=== PATIENT | male | born 1960 | race Caucasian/White ===

== ENCOUNTER 2020-01-08 15:09 | Observation (INO) | payer MEDICARE, MEDICAID, SELFPAY ==
[2020-01-08] VITALS (9 sets, daily range): BP systolic 113–172; BP diastolic 68–102; PULSE 68–85; RESP 18–24; TEMP 36.4–36.9; O2SAT 99–100; BMI 28.8
--- NOTE | ~2020-01-08 | XR_ITS ---
EXAMINATION: XR chest 1V portable DATE: 01/08/2020 16:42 INDICATION: Shortness of breath, dizziness and chills TECHNIQUE: frontal view of the chest was obtained. COMPARISON: Chest radiograph dated 07/11/2018 FINDINGS: The lungs remain clear with no focal airspace opacities, pulmonary edema, pleural effusion or pneumot horax. The cardiomediastinal silhouette is normal. Visualized bones and soft tissues are unremarkable . IMPRESSION: 1. No acute cardiopulmonary disease. Reviewed, dictated and finalized at location A.
--- NOTE | ~2020-01-08 | CT_ITS ---
EXAMINATION: CT brain wo con DATE: 01/08/2020 18:24 INDICATION: Dizziness. TECHNIQUE: Computed tomography (CT) of the head was performed without intravenous contrast. Sagittal and coronal reconstructions were performed. The mA was adjusted according to patient size. Iterative reconstruction technique was employed. The dose-length product was 681.00 mGy-cm. COMPARISON: None FINDINGS: No acute intracranial hemorrhage, acute infarction or abnormal extra axial fluid collection. Ventricl es are normal and symmetric. No mass/mass effect. Mild mucosal thickening the bilateral ethmoid sinus es and right frontoethmoidal recess. The orbits and mastoid air cells are normal. Atherosclerotic juan cifications at the bilateral carotid siphons. IMPRESSION: 1. No acute intracranial process. Reviewed, dictated and finalized at location A.
--- NOTE | ~2020-01-08 | CT_ITS ---
EXAMINATION: CTA chest PE protocol DATE: 01/08/2020 18:24 INDICATION: Shortness of breath. Elevated d-dimer. TECHNIQUE: Computed tomography (CT) pulmonary angiogram of the chest was performed with 100 mL Omnipa que-350 intravenous contrast. Additional 3D reconstructions utilizing coronal maximum intensity proje ction (MIP) were performed. Automated exposure control and iterative reconstruction technique were em ployed. The dose-length product was 413.28 mGy-cm. COMPARISON: None FINDINGS: Excellent contrast opacification of the pulmonary arteries. There is mild streak artifact from dense contrast in the superior vena cava and right atrium. Minimal scattered respiratory motion artifact wh ich does not significantly limit evaluation. No pulmonary embolism. Mild emphysema. Gradient of hazy groundglass opacities in the dependent lower lobes consistent with mild passive atelectasis. No pulmo nary edema, pneumonia, pleural effusion or pneumothorax. Heart size is normal. No pericardial effusio n. Thoracic aorta is normal in caliber with no dissection. There is small amount of peripheral noncal cified plaque along the proximal descending thoracic aorta. No pathologically enlarged thoracic lymph adenopathy. Visualized upper abdomen is unremarkable. Mild thoracic spondylosis. IMPRESSION: 1. No pulmonary embolism or other acute cardiopulmonary disease. 2. Mild emphysema. Reviewed, dictated and finalized at location A.
--- NOTE | 2020-01-08 15:50 | ECG_ITS ---
Measurements Intervals [place] Rate: 73 P: 30 CO: 133 QRS: 81 QRSD: 103 T: 66 QT: 411 QTc: 454 Interpretive Statements SINUS RHYTHM EARLY PRECORDIAL R/S TRANSITION BORDERLINE ECG Electronically Signed On 01-08-2020 16:00:52 CDT by Madi Cruz D.O.
[2020-01-08 15:52] LABS: Basophils Absolute Auto 0.1 K/mm3 (0.0-0.1); Eosinophils Absolute Auto 0.2 K/mm3 (0-0.3); Eosinophils Percent Auto 1.6 % (0-4.4); Hematocrit 45.4 % (42.0-52.0); Hemoglobin 15.9 g/dL (14.0-18.0); Immature Granulocyte Absolute 0.03 K/mm3 (0.00-0.031); Immature Granulocyte Percent A 0.3 % (0-0.5); Lymphocytes Absolute Auto 3.64 K/mm3 (0.9-3.2); Lymphocytes Percent Auto 34.8 % (18.3-44.2); Mean Corpuscular Hemoglobin 30.6 pg (26-34); Mean Corpuscular Volume 87.3 fl (80-100); Mean Platelet Volume 9.6 fl (7.4-10.4); Monocytes Absolute Auto 0.5 K/mm3 (0.1-0.6); Neutrophils Percent Auto 57.3 % (45.5-73.1); Platelet Count Result 469 k/mm3 (150-375); Red Cell Distribution Width 12.6 % (11.5-14.5); White Blood Count 10.5 K/mm3 (4.5-10.0)
--- NOTE | 2020-01-08 15:56 | ED.DIZZY ---
HPI - Dizziness General Chief Complaint: Dizziness Stated Complaint: dizzy, nausea, sweating, weak Time Seen by Provider: 01/08/20 15:26 Source: patient Mode of arrival: ambulatory Limitations: no limitations History of Present Illness HPI Narrative: This patient is a 59 year old male with history of anxiety who presents for evaluation of multiple complaints. Patient states he woke up this morning with dizziness, nausea and dry heaves . He describes his dizziness as spinning. He denies associated headache, focal weakness, visual changes, abdominal pain or chest pain. He states he just feels ill. He also reports cough and sob. He reports he feels like he cant stop moving. He denies sick contacts. MD elicited complaint: dizziness Related Data Allergies Allergy/AdvReac Type Severity Reaction Status Date / Time latex Allergy Unknown Verified 08/01/16 15:28 oxycodone Allergy Unknown NAUSEA AND Verified 11/27/18 15:44 VOMITING Review of Systems Review of Systems: All systems reviewed & are unremarkable except as noted in HPI and below Constitutional: Constitutional: Reports chills, Reports fatigue and Denies fever(s) Eyes: Eyes: Reports no additional eye complaints ENT: Denies dysphagia, Reports vertigo, Reports dizziness, Denies epistaxis, Denies nasal congestion and Denies sore throat Cardiovascular: Cardiovascular: Denies chest pain Respiratory: Respiratory: Reports cough, Reports dyspnea and Denies wheezing Gastrointestinal: Gastrointestinal: Denies abdominal pain, Denies constipation, Denies diarrhea and Reports nausea Neurologic: Denies vertigo, Denies headache(s), Denies focal weakness and Denies numbness PMFSH Past Medical History Medical History (Updated 01/08/20 @ 21:10 by Janett Bhagat MD) Anxiety Surgical History Surgical History (Updated 01/08/20 @ 16:01 by Janett Bhagat MD) H/O: knee surgery Family History Family History (Updated 10/02/16 @ 17:53 by DOCTOR UNKNOWN) Mother Family history of cardiovascular disease Father Family history of malignant neoplasm Social History Social History Smoking status: Former smoker Smoking end date: 05/21/09 Alcohol intake: current Gender identity (if verbalized by the patient): Male Exam Const: General: alert, diaphoretic and ill appearing Orientation/consciousness: patient oriented x3 HENMT: Mouth: Yes moist mucous membranes Eyes: Pupils: Equal, round and reactive pupils present EOM: EOMs intact bilaterally Resp: Effort & Inspection: no retractions, tachypneic (hyperventilating) and no use of accessory muscles Auscultation: clear to auscultation bilaterally Cardio: Rate: regular rate Rhythm: regular rhythm Heart sounds: no murmurs GI: Auscultation: normal bowel sounds Neuro: General: patient oriented x3 and moves all extremities Extrem: General: no pedal edema Psych: Affect: Anxious affect present Course Consultations Consultation #1: I Discussed with Dr. daley case and she accepts for observation for IVF hydration Date: 01/08/20 Time: 21:03 Vital Signs Vital signs: Vital Signs Temperature 97.6 F 01/08/20 15:10 Pulse Rate 85 01/08/20 15:10 Respiratory Rate 22 H 01/08/20 15:10 Blood Pressure 113/75 01/08/20 15:10 Pulse Oximetry 100 01/08/20 15:10 Temperature 97.6 F 01/08/20 15:10 Pulse Rate 78 01/08/20 21:02 Respiratory Rate 18 01/08/20 21:02 Blood Pressure 158/70 H 01/08/20 21:02 Pulse Oximetry 99 01/08/20 19:26 MDM - Dizziness Lab Data Attestation: I reviewed the patient's lab results. Result diagrams: 01/08/20 15:38 01/08/20 15:39 Labs: Lab Results 01/08/20 01/08/20 01/08/20 Range/Units 15:37 15:38 15:39 WBC 10.5 H (4.5-10.0) K/mm3 RBC 5.20 (4.6-6.20) M/mm3 Hgb 15.9 (14.0-18.0) g/dL Hct 45.4 (42.0-52.0) % MCV 87.3 (80-100) fl MCH 30.6 (26-34) pg MCHC 35.0 (32-36) g/dl RDW
[2020-01-08] MEDS: ONDANSETRON INJ 4 MG/2 ML VIAL IV PUSH (15:59)
[2020-01-08] MEDS: MECLIZINE HCL 25 MG TABLET PO ×2 (16:00→19:50)
[2020-01-08 16:06] LABS: Alanine Aminotransferase 29 U/L (4-50); Albumin Level 4.9 g/dL (3.5-5.1); Alkaline Phosphatase 113 U/L (38-126); Anion Gap 13 mmol/L (8-16); Aspartate Amino Transferase 32 U/L (17-59); Bilirubin,Total 0.5 mg/dL (0.2-1.3); Blood Urea Nitrogen 13 mg/dL (9-20); Calcium 10.6 mg/dL (8.4-10.2); Carbon Dioxide 18 mmol/L (22-30); Chloride 111 mmol/L (98-107); Estimated CRCL calculation 60 ml/min; Estimated Glomerular Filt Rate > 60; Glucose 176 mg/dL (75-110); Potassium 3.7 mmol/L (3.4-5.0); Sodium 142 mmol/L (137-145)
[2020-01-08 16:21] LABS: Alveolar/Arterial O2 Gradient 28.6 mmHg; Carboxyhemoglobin 1.6 % THb (0-2.0); Fractional Inspired Oxygen 21 %; HCO3 ABG 17.4 mEq/l (22.0-26.0); Methemoglobin ABG 0.5 %THb (0-1.5); Oxygen Content ABG 20.8 %vol (16.0-22.0); Oxyhemoglobin 95.8 % THb (90.0-100.0); PO2 ABG 95.1 mmHg (80.0-100.0); PO2 FiO2 Ratio Arterial Blood 4.53 %; Reduced Hemoglobin 2.1 %THb (0-5.0); Total Hemoglobin 15.4 g/dL (12.0-18.0)
[2020-01-08 16:22] LABS: pH ABG 7.522 (7.350-7.450)
[2020-01-08 16:23] LABS: Device ROOM AIR; Modified Allen's Test Pass; PCO2 ABG 21.7 mmHg (35.0-45.0); Site Drawn LEFT RADIAL
[2020-01-08 16:28] LABS: INR 0.9; Prothrombin Time 11.8 Seconds (11.1-14.7)
[2020-01-08 16:29] LABS: Partial Thromboplastin Time 22.7 SECONDS (22.3-36.8)
[2020-01-08 16:31] LABS: D Dimer 0.75 ug/mL (<0.48)
[2020-01-08 17:10] LABS: Lactic Acid Reflex 3.5 mmol/L (0.7-2.1)
[2020-01-08 17:12] LABS: Ethanol < 10 mg/dL (<10)
[2020-01-08 17:14] LABS: CRP < 0.5 mg/dL (<1.0); Lactate Dehydrogenase 471 U/L (313-618)
[2020-01-08 17:20] LABS: NT Pro B Type Natriuretic Pept 39 PG/ML (5-100)
--- NOTE | 2020-01-08 17:20 | PC.NURSE ---
patient refuses to provide urine for ua until i get some water refuses to be straight cathed. unpleasant and uncooperative with nursing interventions
[2020-01-08] MEDS: LACTATED RINGERS 1,000 ML 999 ML IV CONT (17:32)
[2020-01-08] MEDS: PROMETHAZINE HCL 25 MG/ML AMPUL 12.5 MG IV PUSH (17:45)
[2020-01-08 19:36] LABS: Add Urine Microscopic? YES; Appearance Urine Clear (Clear); Bilirubin Urine Negative (Negative); Blood Urine Negative (Negative); Color Urine Yellow (Yellow); Glucose Urine UA 1+ mg/dL (Negative); Ketones Urine Trace mg/dL (Negative); Leukocyte Esterase Ur Negative LEU/UL (Negative); Mucus Urine Rare /lpf; Nitrate Urine Negative (Negative); Protein Urine 1+ mg/dL (Negative); RBC Urine 0-2 /hpf (0-2); Urobilinogen Urine Negative mg/dL (<2.0); WBC Urine 0-3 /hpf
[2020-01-08 19:39] LABS: Specific Grav Ur 1.048 (1.001-1.035)
[2020-01-08 19:46] LABS: Amphetamine Screen Urine Negative (Negative); Barbiturate Screen Urine Negative (Negative); Benzodiazepines Screen Urine Negative (Negative); Cannabinoid Screen Urine Positive (Negative); Methadone Screen Urine Negative (Negative); Opiate Screen Urine Negative (Negative); Phencyclidine Screen Urine Negative (Negative)
[2020-01-08] MEDS: SODIUM CHLORIDE 0.9% IV 1,000 ML 999 ML IV CONT (19:50)
[2020-01-08 19:57] LABS: Reflex Lactic Acid Yes or No Add Lactic
[2020-01-08 20:10] LABS: Cocaine Screen Urine Negative (Negative)
[2020-01-08 20:32] LABS: Lactic Acid 2.6 mmol/L (0.7-2.1)
[2020-01-09] VITALS (7 sets, daily range): BP systolic 142–164; BP diastolic 79–92; PULSE 67–102; RESP 18; TEMP 37.1–37.2; O2SAT 97–99
[2020-01-09 00:58] LABS: Lactic Acid Reflex 1.3 mmol/L (0.7-2.1)
--- NOTE | 2020-01-09 01:23 | ADMGEN ---
This patient, Gabe Moses, was admitted to 3 Med Surg Room 329-01. Patient/family oriented to hospital policies and general routines including ID bracelet, bed and alarms, visiting hours, pain management, procedures, bathroom and other care routines, personal items, smoking policy, room service/diet, and visiting hours. Valuables list has been completed. Information on how to activate the Rapid Response Team has been discussed. Patient/Family are encouraged to report perceived risks to care and to ask questions if they do not understand what they are told or what they should do.
[2020-01-09 02:52] LABS: SARS-CoV-2 RNA PCR Negative
[2020-01-09 06:09] LABS: Basophils Percent Auto 0.2 % (0.2-1.2); Hemoglobin 13.2 g/dL (14.0-18.0); Immature Granulocyte Absolute 0.08 K/mm3 (0.00-0.031); Immature Granulocyte Percent A 0.5 % (0-0.5); Lymphocytes Absolute Auto 1.41 K/mm3 (0.9-3.2); Lymphocytes Percent Auto 8.4 % (18.3-44.2); Mean Corpuscular HGB Conc 34.7 g/dl (32-36); Mean Corpuscular Hemoglobin 30.6 pg (26-34); Mean Corpuscular Volume 88.2 fl (80-100); Mean Platelet Volume 9.5 fl (7.4-10.4); Monocytes Absolute Auto 0.9 K/mm3 (0.1-0.6); Neutrophils Absolute Auto 14.5 K/mm3 (1.3-6.7); Neutrophils Percent Auto 85.9 % (45.5-73.1); Platelet Count Result 316 k/mm3 (150-375); Red Blood Count 4.31 M/mm3 (4.6-6.20); Red Cell Distribution Width 12.7 % (11.5-14.5); White Blood Count 16.9 K/mm3 (4.5-10.0)
[2020-01-09 06:28] LABS: Alanine Aminotransferase 19 U/L (4-50); Albumin Level 4.1 g/dL (3.5-5.1); Alkaline Phosphatase 76 U/L (38-126); Anion Gap 9 mmol/L (8-16); Aspartate Amino Transferase 23 U/L (17-59); Bilirubin,Total 0.3 mg/dL (0.2-1.3); Blood Urea Nitrogen 10 mg/dL (9-20); Carbon Dioxide 22 mmol/L (22-30); Chloride 107 mmol/L (98-107); Estimated CRCL calculation 62 ml/min; Estimated Glomerular Filt Rate > 60; Glucose 125 mg/dL (75-110); Potassium 3.6 mmol/L (3.4-5.0); Sodium 138 mmol/L (137-145)
[2020-01-09 11:23] LABS: Hemoglobin A1C 5.7 % (<5.7)
--- NOTE | 2020-01-09 12:09 | PM.SD ---
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 Pt also had compliants of headache, dizziness, focal weakness and blurred vision. Pt had eaten mcdonalds and soda yesterday but does not remember drinking water. Pt has also been eating less and has been down because he lost his dog of 9 years. Pt was checked for covid but it was negative. Pt had CT head which was NL and CT chest which showed no PE. Pt had a UDS which was positive for cannabinoids. Pt was admitted and hydrated with fluids. PMFSH Past Medical History Medical History Anxiety Surgical History Surgical History H/O: knee surgery Family History Family History Mother Family history of cardiovascular disease Father Family history of malignant neoplasm Social History Social History Smoking packs per day: 2 Smoking cigarettes per day: 40.0 Years smoked: 40 Smoking pack-years: 80.00 Smoking status: Former smoker Tobacco type: cigarettes Smoking end date: 05/21/09 Alcohol intake: former Substance use type: marijuana Other substance usage details: Daily use of marijuana Gender identity (if verbalized by the patient): Male Spiritual care concerns: No Same Day Admit/Disch: Med Pre-admit Medications Home Medications Medication Instructions Recorded Confirmed Type omeprazole 40 mg PO DAILY 01/08/20 01/08/20 History venlafaxine 150 mg PO DAILY 01/08/20 01/08/20 History Exam Const: General: well developed Nutritional Appearance: well nourished HENMT: Head: normocephalic and other (tongue is moist ) Eyes: General: appearance normal, both eyes and all related structures Pupils: Equal, round and reactive pupils present Neck: Neck: supple Chest: Chest palpation & inspection: normal inspection of the chest Resp: Effort & Inspection: normal respiratory effort Auscultation: clear to auscultation bilaterally Cardio: Jugular venous distension: no JVD Rhythm: regular rhythm Heart sounds: S1 normal heart sound present and S2 normal heart sound present GI: Inspection: normal to inspection GI Palp: No abdominal tenderness, Yes Soft to palpation and No Tenderness to palpation present (GI) Auscultation: normal bowel sounds Skin: General skin exam: normal color and dry skin Neuro: Cranial nerves: Yes CN's II-XII intact bilaterally and Yes Equal, round and reactive pupils present Cognition (Neuro): normal cognition Speech: normal speech Motor exam (neuro): 5/5 motor strength present throughout Extrem: General: normal to inspection Psych: Appearance: grossly normal Mental Status: mental status grossly normal DS: Data Data Completed and Pending Labs on day of discharge: Labs from last 24 hours 01/09/20 01/09/20 01/09/20 05:55 05:55 00:27 WBC 16.9 H RBC 4.31 L Hgb 13.2 L Hct 38.0 L MCV 88.2 MCH 30.6 MCHC 34.7 RDW 12.7 Plt Count 316 MPV 9.5 Immature Gran % (Auto) 0.5 Neut % (Auto) 85.9 H Lymph % (Auto) 8.4 L [place] % (Auto) 5.0 Eos % (Auto) 0.0 Baso % (Auto) 0.2 Lymph # (Auto) 1.41 [place] # (Auto) 0.9 H Eos # (Auto) 0.0 Baso # (Auto) 0.0 Abs Immat Gran (auto) 0.08 H Absolute Neuts (auto) 14.5 H Absolute Nucleated RBC 0.0 Nucleated RBC % 0.0 PT INR APTT D-Dimer Puncture Site ABG pH ABG pCO2 ABG pO2 ABG PO2/FiO2 Ratio ABG HCO3 ABG O2 Saturation ABG O2 Content ABG Base Excess A-a Gradient Oxyhemoglobin Carboxyhemoglobin Methemoglobin Reduced Hemoglobin Total Hemoglobin
[2020-01-09] MEDS: SODIUM CHLORIDE 0.9% IV 1,000 ML 125 ML IV CONT ×2 (12:15)
--- NOTE | 2020-01-09 12:54 | PC.NURSE ---
Per Dr. Oliva, patient to have 500mL more normal saline prior to discharge. Ok to increase fluid rate to 250mL/hour and discharge patient at 1500 once fluids are finished. Patient updated on plan of care.
== END 2020-01-09 15:16 | disposition home or self-care (01) ==
LOC: ANHED 21:17 → ANH3MEDSUR 01-09 01:51
PROVIDERS: Admitting Provider Internal Medicine; Emergency Provider General Practice; PCP Emergency Medicine; Visit Provider Family Medicine
DX: E86.0 Dehydration (principal); Z20.828 Contact with and (suspected) exposure to other viral communicable diseases; R42 Dizziness and giddiness; R06.02 Shortness of breath; E87.2 Acidosis; F12.90 Cannabis use, unspecified, uncomplicated; Z79.899 Other long term (current) drug therapy; Z87.891 Personal history of nicotine dependence
CPT/HCPCS: 36415; 36600; 70450; 71045; 71275; 80053; 80307; 81001; 82375; 82805; 83036; 83050; 83605; 83615; 83880; 85025; 85380; 85610; 85730; 86140; 87635; 93005; 96361; 96374; 96375; 99291; A9270; C9803; G0378; J2060; J2405; J2550; J7030; J7120; Q9967; U0003

== ENCOUNTER 2020-04-21 10:24 | Outpatient (CLI) | payer MEDICARE, MEDICAID, SELFPAY ==
--- NOTE | ~2020-04-21 | XR_ITS ---
EXAMINATION: XR wrist LT 2V DATE: 04/21/2020 10:46 INDICATION: Left wrist pain. TECHNIQUE: 2 views of left wrist were obtained. COMPARISON: None. FINDINGS: Bone alignment is normal. No fracture. There is mild osteoarthritis of first carpometacarpa l joint. IMPRESSION: 1. Mild osteoarthritis of first carpometacarpal joint. Reviewed, dictated and finalized at location A. LWORKING SPECIALIST
== END 2020-04-21 10:25 | disposition home or self-care (01) ==
LOC: ANHIMG 10:33
PROVIDERS: PCP Emergency Medicine; Visit Provider Emergency Medicine
DX: M19.032 Primary osteoarthritis, left wrist (principal)
CPT/HCPCS: 73100

== ENCOUNTER 2020-09-22 08:48 | Outpatient (CLI) | payer MEDICARE, MEDICAID, SELFPAY ==
--- NOTE | ~2020-09-22 | MR_ITS ---
EXAMINATION: MR wrist LT wo con DATE: 09/22/2020 09:49 INDICATION: Left wrist pain TECHNIQUE: Magnetic resonance imaging (MRI) of the left wrist was performed without intravenous contr ast. Sequences performed include axial PD-weighted FSE and PD-weighted FS FSE, coronal PD-weighted FS FSE, T1-weighted FSE and 3-D FGRE, and sagittal PD-weighted FS FSE and PD-weighted FSE. COMPARISON: Left wrist radiographs dated 04/21/2020 FINDINGS: Evaluation mildly limited by small amount of motion artifact or blurring on all but the 3-D FGRE sequ ences. Intrinsic ligaments: The scapholunate and lunotriquetral ligaments are normal. Triangular fibrocartilage complex (TFCC): Mild increased signal of less than fluid intensity consistent with partial tear at the central fiber cartilaginous disc of the triangular fibrocartilage complex as well as the dorsal radioulnar ligament . The foveal and ulnar styloid attachments remain intact. The ulnar collateral ligament, ulnotriquetr al ligament and meniscal homologue are normal. The extensor carpi ulnaris tendon sheath is normal. Extensor wrist: Extensor tendons of the wrist are normal. No tenosynovitis. Flexor wrist: The flexor tendons of the wrist are normal. No abnormality in the carpal tunnel with normal median n erve. Guyon's canal: Guyon's canal including the ulnar nerve and artery are normal. Bones/other: 2 mm ulnar positive variance. There is prominent cystic change in the lunate with surrounding marrow edema. This is centered along the ulnar side of the proximal articular cortex juxtaposed to the radia l margin of the distal articular surface of the ulna and would be consistent with ulnocarpal impactio n. Moderate osteoarthritis at the first carpometacarpal joint with nonuniform cartilage loss, promine nt hypertrophic changes and subarticular cystic change at the trapezium. No fracture, or pathologic m arrow replacing process. Additional mild polyarticular osteoarthritis at the wrist, midcarpal, trisca phe and remaining carpal metacarpal joints. IMPRESSION: 1. 2 mm ulnar positive variance with prominent cystic change at the lunate consistent with ulnocarpal impaction. 2. 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 3. Partial tears of the central fibrocartilaginous disc and dorsal radioulnar ligament components of the triangular fibrocartilage complex. Reviewed, dictated and finalized at location A. IMPRESSION: 1. 2 mm ulnar positive variance with prominent cystic change at the lunate cons istent with ulnocarpal impaction. 2. 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 3. Partial tears of the central fibrocartilaginous disc and dorsal radioulnar l igament components of the triangular fibrocartilage complex.
== END 2020-09-22 08:49 | disposition home or self-care (01) ==
PROVIDERS: PCP Emergency Medicine; Visit Provider Orthopaedic Surgery
DX: M19.032 Primary osteoarthritis, left wrist (principal)
CPT/HCPCS: 73221

== ENCOUNTER 2020-10-11 17:58 | Emergency (ER) | payer MEDICARE, MEDICAID, SELFPAY ==
--- NOTE | ~2020-10-11 | CT_ITS ---
EXAMINATION: CT abdomen pelvis w con DATE: 10/11/2020 20:14 INDICATION: Low abdominal pain. Vomiting. TECHNIQUE: Computed tomography (CT) of the abdomen and pelvis was performed with 100 cc Omnipaque 350 intravenous contrast. The dose-length product was 353.49 mGy-cm. Automated exposure control and iter ative reconstruction technique were employed. COMPARISON: CT dated 12/27/2016 FINDINGS: Bibasilar dependent atelectasis. Heart size is normal. Small hiatal hernia. No significant pleural or pericardial effusion. Colonic diverticulosis without evidence for diverticulitis. Fat-cont aining umbilical hernia. Nonobstructive bowel gas pattern. Chronic diverticulosis without evidence fo r diverticulitis. Fatty infiltration of the liver. The spleen, pancreas, adrenal glands and kidneys are unremarkable. G allbladder is present. Small liver cyst right hepatic lobe. No free air or free fluid. No acute osseo us abnormality. Moderate lumbar spondylosis with dextroscoliosis. IMPRESSION: 1. No acute abdominal abnormality. Reviewed, dictated and finalized at location A.
[2020-10-11 18:01] VITALS: BP 159/90; PULSE 74; RESP 20; TEMP 36.8; O2SAT 100
[2020-10-11 18:11] LABS: Basophils Percent Auto 0.3 % (0.2-1.2); Hematocrit 43.6 % (42.0-52.0); Hemoglobin 14.7 g/dL (14.0-18.0); Immature Granulocyte Absolute 0.06 K/mm3 (0.00-0.031); Immature Granulocyte Percent A 0.5 % (0-0.5); Lymphocytes Absolute Auto 0.91 K/mm3 (0.9-3.2); Lymphocytes Percent Auto 7.1 % (18.3-44.2); Mean Corpuscular HGB Conc 33.7 g/dl (32-36); Mean Corpuscular Hemoglobin 30.8 pg (26-34); Mean Corpuscular Volume 91.2 fl (80-100); Mean Platelet Volume 9.1 fl (7.4-10.4); Monocytes Absolute Auto 0.2 K/mm3 (0.1-0.6); Monocytes Percent Auto 1.9 % (2.6-8.5); Neutrophils Absolute Auto 11.5 K/mm3 (1.3-6.7); Neutrophils Percent Auto 90.2 % (45.5-73.1); Platelet Count Result 345 k/mm3 (150-375); Red Blood Count 4.78 M/mm3 (4.6-6.20); Red Cell Distribution Width 12.7 % (11.5-14.5); White Blood Count 12.8 K/mm3 (4.5-10.0)
[2020-10-11 18:30] LABS: Alanine Aminotransferase 34 U/L (4-50); Albumin Level 4.9 g/dL (3.5-5.1); Alkaline Phosphatase 68 U/L (38-126); Anion Gap 10 mmol/L (8-16); Aspartate Amino Transferase 42 U/L (17-59); Bilirubin,Total 0.5 mg/dL (0.2-1.3); Blood Urea Nitrogen 16 mg/dL (9-20); Calcium 10.2 mg/dL (8.4-10.2); Carbon Dioxide 25 mmol/L (22-30); Chloride 106 mmol/L (98-107); Estimated CRCL calculation 66 ml/min; Estimated Glomerular Filt Rate > 60; Glucose 176 mg/dL (75-110); Lipase 106 U/L (23-300); Potassium 3.9 mmol/L (3.4-5.0); Sodium 141 mmol/L (137-145)
[2020-10-11 19:40] LABS: Add Urine Microscopic? YES; Appearance Urine Clear (Clear); Bilirubin Urine Negative (Negative); Blood Urine Negative (Negative); Color Urine Yellow (Yellow); Glucose Urine UA 1+ mg/dL (Negative); Ketones Urine Trace mg/dL (Negative); Leukocyte Esterase Ur Negative LEU/UL (Negative); Mucus Urine Rare /lpf; Nitrate Urine Negative (Negative); Protein Urine 2+ mg/dL (Negative); Squamous Epithelial Cell Urine Rare /hpf (Few); Urobilinogen Urine Negative mg/dL (<2.0); WBC Urine 0-3 /hpf
--- NOTE | 2020-10-11 19:41 | ED.NAVMDI ---
HPI - Nausea/Vomiting/Diarrhea General Chief complaint: Nausea/Vomiting/Diarrhea Stated complaint: chills, N/V Time Seen by Provider: 10/11/20 19:26 Source: patient Mode of arrival: ambulatory Limitations: no limitations History of Present Illness HPI Narrative: This is a 59 year old male with history of GERD who presents for evaluation of nausea, vomiting and diarrhea. He states he woke up this morning with abdominal pain discomfort with nausea, vomiting and diarrhea. He reports multiple episodes of nonbloody diarrhea this morning. He feels that his diarrhea has resolved. He continues to have nausea and vomiting. He states he has similar episodes at least once a year. When he is asked if he has abdominal pain, he states he just feels tense all over. He is unable to get comfortable. He denies fever or chills. He is concerned that he is dehydrated. Related Data Allergies Allergy/AdvReac Type Severity Reaction Status Date / Time latex Allergy Unknown Verified 08/01/16 15:28 oxycodone Allergy Unknown NAUSEA AND Verified 11/27/18 15:44 VOMITING Review of Systems Review of Systems: All systems reviewed & are unremarkable except as noted in HPI and below Constitutional: Constitutional: Denies chills and Denies fever(s) Cardiovascular: Cardiovascular: Denies chest pain Respiratory: Respiratory: Denies cough and Denies dyspnea Gastrointestinal: Gastrointestinal: Reports abdominal pain, Reports diarrhea, Reports nausea and Reports vomiting Musculoskeletal: Musculoskeletal: Reports myalgias PMFSH Past Medical History Medical History (Updated 10/11/20 @ 21:03 by Janett Bhagat MD) Anxiety Surgical History Surgical History H/O: knee surgery Family History Family History Mother Family history of cardiovascular disease Father Family history of malignant neoplasm Social History Social History Smoking packs per day: 2 Smoking cigarettes per day: 40.0 Years smoked: 40 Smoking pack-years: 80.00 Smoking status: Former smoker Tobacco type: cigarettes Smoking end date: 05/21/09 Alcohol intake: former Substance use type: marijuana Other substance usage details: Daily use of marijuana Gender identity (if verbalized by the patient): Male Spiritual care concerns: No Exam Const: General: alert Orientation/consciousness: patient oriented x3 Eyes: EOM: EOMs intact bilaterally Resp: Effort & Inspection: normal respiratory effort and no retractions Auscultation: clear to auscultation bilaterally Cardio: Rate: regular rate Rhythm: regular rhythm Heart sounds: no murmurs GI: GI Palp: Yes Soft to palpation, Yes Tenderness to palpation present (GI) (umbilical hernai), No Guarding due to palpation present (GI), No Rigid due to palpation and Yes Hernia present (umbilical hernia, no erythema but there is tenderness) Skin: General skin exam: normal color Rashes: no rashes Neuro: General: patient oriented x3, moves all extremities and CN's II-XI intact bilaterally Psych: Mental Status: mental status grossly normal Affect: normal affect Course Reevaluation(s) Reevaluation #1: PAtient states he feels better . He denies nausea or vomiting. He was able to tolerate PO. Date: 10/11/20 Time: 21:02 Vital Signs Vital signs: Vital Signs Temperature 98.3 F 10/11/20 18:01 Pulse Rate 74 10/11/20 18:01 Respiratory Rate 20 10/11/20 18:01 Blood Pressure 159/90 H 10/11/20 18:01 Pulse Oximetry 100 10/11/20 18:01 Temperature 98.3 F 10/11/20 18:01 Pulse Rate 80 10/11/20 20:49 Respiratory Rate 16 10/11/20 20:49 Blood Pressure 169/75 H 10/11/20 20:49 Pulse Oximetry 100 10/11/20 20:49 MDM - Nausea/Vomiting/Diarrhea Lab Data Attestation: I reviewed the patient's lab results. Result diagr
[2020-10-11] MEDS: ONDANSETRON INJ 4 MG/2 ML VIAL IV PUSH (19:52)
[2020-10-11] MEDS: SODIUM CHLORIDE 0.9% IV 1,000 ML 999 ML IV CONT (19:52)
[2020-10-11] MEDS: FAMOTIDINE 20 MG/2 ML VIAL IV PUSH (19:53)
[2020-10-11 20:45] VITALS: BP 169/75; PULSE 80
[2020-10-11 20:46] VITALS: BP 152/85; BP 154/82; PULSE 87; PULSE 88
[2020-10-11 20:49] VITALS: BP 169/75; PULSE 80; RESP 16; O2SAT 100
== END 2020-10-11 21:33 | disposition home or self-care (01) ==
PROVIDERS: Emergency Medicine; Emergency Provider General Practice; PCP Emergency Medicine
DX: K52.9 Noninfective gastroenteritis and colitis, unspecified (principal); E86.0 Dehydration; Z87.891 Personal history of nicotine dependence; F41.9 Anxiety disorder, unspecified; K21.9 Gastro-esophageal reflux disease without esophagitis
CPT/HCPCS: 36415; 74177; 80053; 81001; 83690; 85025; 96361; 96374; 96375; 99284; J2405; J7030; Q9967

== ENCOUNTER 2022-01-11 08:04 | Emergency (ER) | payer MEDICARE, MEDICAID, SELFPAY ==
[2022-01-11] VITALS (7 sets, daily range): BP systolic 171–198; BP diastolic 74–106; PULSE 71–87; RESP 17–20; TEMP 37.3; O2SAT 97–100
--- NOTE | ~2022-01-11 | CT_ITS ---
EXAMINATION: CT abdomen pelvis w con INDICATION: Vomiting TECHNIQUE: Computed tomographic images of the abdomen and pelvis were obtained after the administrati on of 100 cc of Omnipaque 350 intravenous contrast. The dose-length product (DLP) was 265.82 mGy-cm. Automated exposure control and iterative reconstruction technique were employed. COMPARISON: 10/11/2020 FINDINGS: Minimal dependent atelectasis is present in the lung bases. Mild emphysema is also noted. T he heart size is normal. There is a stable 3 mm nodule of the right lower lobe. Cysts of the liver me asure up to 10 mm in the right hepatic lobe. The spleen, pancreas, gallbladder, and adrenal glands ar e normal. Hypoattenuating lesions in the kidneys, measuring up to 5 mm on the left, are too small to characterize but likely represent cysts. No pathologically enlarged abdominal or pelvic lymph nodes a re identified. There is no free intraperitoneal gas or evidence of bowel obstruction. Colonic diverti culosis is present without evidence of diverticulitis. There is a small umbilical hernia containing f at. There is calcified atherosclerosis of the aorta and many of the other arteries. The appendix is n ormal. IMPRESSION: 1. No CT correlate for the patient's symptoms. Reviewed, dictated and finalized at location B.
[2022-01-11 08:37] LABS: Basophils Absolute Auto 0.1 K/mm3 (0.0-0.1); Basophils Percent Auto 0.7 % (0.2-1.2); Eosinophils Absolute Auto 0.2 K/mm3 (0-0.3); Eosinophils Percent Auto 1.7 % (0-4.4); Hematocrit 42.2 % (42.0-52.0); Hemoglobin 14.5 g/dL (14.0-18.0); Immature Granulocyte Absolute 0.03 K/mm3 (0.00-0.031); Immature Granulocyte Percent A 0.3 % (0-0.5); Lymphocytes Absolute Auto 3.43 K/mm3 (0.9-3.2); Lymphocytes Percent Auto 30.3 % (18.3-44.2); Mean Corpuscular HGB Conc 34.4 g/dl (32-36); Mean Corpuscular Hemoglobin 31.4 pg (26-34); Mean Corpuscular Volume 91.3 fl (80-100); Mean Platelet Volume 9.1 fl (7.4-10.4); Monocytes Absolute Auto 0.9 K/mm3 (0.1-0.6); Monocytes Percent Auto 7.9 % (2.6-8.5); Neutrophils Absolute Auto 6.7 K/mm3 (1.3-6.7); Neutrophils Percent Auto 59.1 % (45.5-73.1); Platelet Count Result 334 k/mm3 (150-375); Red Blood Count 4.62 M/mm3 (4.6-6.20); Red Cell Distribution Width 13.1 % (11.5-14.5); White Blood Count 11.3 K/mm3 (4.5-10.0)
--- NOTE | 2022-01-11 08:49 | ED.NAVMDI ---
HPI - Nausea/Vomiting/Diarrhea General Chief complaint: Nausea/Vomiting/Diarrhea Stated complaint: N/V weakness dehydrated Time Seen by Provider: 01/11/22 08:32 History of Present Illness HPI Narrative: This is a 61-year-old male with past medical history of GERD, presenting emergency department complaining of multiple episodes of vomiting and dehydration. States since Sunday he has vomited more than 50 times with small amounts of blood. He denies any known sick contacts, fevers, chills, cough but does endorse some upper respiratory congestion. He denies abdominal pain, his last bowel movement was yesterday and was passing gas this morning. Related Data Allergies Allergy/AdvReac Type Severity Reaction Status Date / Time latex Allergy Unknown unknown Verified 01/11/22 08:16 oxycodone Allergy Unknown NAUSEA AND Verified 01/11/22 08:16 VOMITING PMFSH Past Medical History Medical History (Updated 01/11/22 @ 11:51 by Bob Moore MD) Anxiety Surgical History Surgical History H/O: knee surgery Family History Family History Mother Family history of cardiovascular disease Father Family history of malignant neoplasm Social History Social History Smoking packs per day: 2 Smoking cigarettes per day: 40.0 Years smoked: 40 Smoking pack-years: 80.00 Smoking status: Former smoker Tobacco type: cigarettes Smoking end date: 05/21/09 Alcohol intake: former Substance use type: marijuana Other substance usage details: Daily use of marijuana Gender identity (if verbalized by the patient): Male Spiritual care concerns: No Exam Narrative: GENERAL: Well-appearing, well-nourished, in moderate distress appears uncomfortable HEAD: Normocephalic, atraumatic. EYES: PERRLA and EOMI. ENT: Nares clear, no rhinorrhea or epistaxis. Mucous membranes dry. Oropharynx without tonsillar hypertrophy exudate or other lesions. NECK: Supple. No adenopathy or masses. No carotid bruits or JVD CHEST: Clear to auscultation. No respiratory distress. No wheezes rales or rhonchi HEART: Regular rate and rhythm. No murmur heard. Normal peripheral pulses. ABDOMEN: Soft, nontender, nondistended, normal active bowel sounds. EXTREMITIES: Normal range of motion. No edema. SKIN: Warm, dry, no rash. NEURO: No focal deficits. Alert and oriented x3. PSYCH: Anxious, Normal affect. Course Vital Signs Vital signs: Vital Signs Temperature 99.2 F 01/11/22 08:09 Pulse Rate 83 01/11/22 08:09 Respiratory Rate 18 01/11/22 08:09 Blood Pressure 178/96 H 01/11/22 08:09 Pulse Oximetry 100 01/11/22 08:09 Oxygen Delivery Room Air 01/11/22 08:09 Temperature 99.2 F 01/11/22 08:09 Pulse Rate 71 01/11/22 13:15 Respiratory Rate 18 01/11/22 13:15 Blood Pressure 187/104 H 01/11/22 13:15 Pulse Oximetry 99 01/11/22 13:15 Oxygen Delivery Room Air 01/11/22 08:09 MDM - Nausea/Vomiting/Diarrhea Lab Data Result diagrams: 01/11/22 08:30 01/11/22 08:56 Labs: Lab Results 01/11/22 01/11/22 01/11/22 Range/Units 08:30 08:56 08:56 WBC 11.3 H (4.5-10.0) K/mm3 RBC 4.62 (4.6-6.20) M/mm3 Hgb 14.5 (14.0-18.0) g/dL Hct 42.2 (42.0-52.0) % MCV 91.3 (80-100) fl MCH 31.4 (26-34) pg MCHC 34.4 (32-36) g/dl RDW 13.1 (11.5-14.5) % Plt Count 334 (150-375) k/mm3 MPV 9.1 (7.4-10.4) fl Immature Gran % (Auto) 0.3 (0-0.5) % Neut % (Auto) 59.1 (45.5-73.1) % Lymph % (Auto) 30.3 (18.3-44.2) % [place] % (Auto) 7.9 (2.6-8.5) % Eos % (Auto) 1.7 (0-4.4) % Baso % (Auto) 0.7 (0.2-1.2) % Lymph # (Auto) 3.43 H (0.9-3.2) K/mm3 [place] # (Auto) 0.9 H (0.1-0.6) K/mm3 Eos # (Auto) 0.2 (0-0.3) K/mm3 Baso # (Auto) 0.1 (0.0-0.1) K/mm3 A
[2022-01-11 09:08] LABS: Appearance Urine Clear (Clear); Bilirubin Urine Negative (Negative); Blood Urine 1+ (Negative); Color Urine Yellow (Yellow); Glucose Urine UA Negative (Negative); Ketones Urine Negative (Negative); Leukocyte Esterase Ur Negative LEU/UL (Negative); Nitrate Urine Negative (Negative); Protein Urine Negative (Negative); Urobilinogen Urine 0.2 mg/dL (<2.0)
[2022-01-11 09:09] LABS: Add Urine Microscopic? YES; Mucus Urine Rare /lpf; RBC Urine 0-2 /hpf (0-2); WBC Urine 0-3 /hpf
[2022-01-11 09:18] LABS: Alanine Aminotransferase 38 U/L (6-50); Albumin Level 4.6 g/dL (3.5-5.1); Alkaline Phosphatase 68 U/L (38-126); Anion Gap 10 mmol/L (8-16); Aspartate Amino Transferase 43 U/L (17-59); Bilirubin,Total 0.6 mg/dL (0.2-1.3); Blood Urea Nitrogen 23 mg/dL (9-20); Calcium 9.4 mg/dL (8.4-10.2); Carbon Dioxide 28 mmol/L (22-30); Chloride 99 mmol/L (98-107); Estimated CRCL calculation 56 ml/min; Estimated Glomerular Filt Rate > 60; Glucose 128 mg/dL (65-110); Lipase 545 U/L (23-300); Potassium 3.7 mmol/L (3.4-5.0); Sodium 137 mmol/L (137-145)
[2022-01-11] MEDS: SODIUM CHLORIDE 0.9% IV 1,000 ML 999 ML IV CONT ×2 (09:24→10:45)
[2022-01-11] MEDS: PROCHLORPERAZINE EDISYLATE 10 MG/2 ML VIAL IV PUSH (09:24)
--- NOTE | 2022-01-11 09:29 | PC.NURSE ---
Pt taken to CT
[2022-01-11] MEDS: ONDANSETRON HCL ODT 4 MG TABLET PO (11:21)
[2022-01-11] MEDS: hydrOXYzine HCL 25 MG TABLET PO (11:58)
== END 2022-01-11 13:30 | disposition home or self-care (01) ==
PROVIDERS: Emergency Provider Preventive Medicine Aerospace Medicine; PCP Emergency Medicine
DX: K85.90 Acute pancreatitis without necrosis or infection, unspecified (principal); F41.9 Anxiety disorder, unspecified; Z87.891 Personal history of nicotine dependence
CPT/HCPCS: 36415; 74177; 80053; 81001; 83690; 85025; 96361; 96374; 99284; A9270; J0780; J7030; Q9967

== ENCOUNTER 2022-07-19 00:44 | Day surgery (SDC) | payer MEDICARE, MEDICAID, SELFPAY ==
[2022-07-03 12:09] VITALS: BMI 22.8
[2022-07-19 07:58] VITALS: BP 140/96; PULSE 94; RESP 18; TEMP 36.6; O2SAT 100
[2022-07-19] MEDS: LACTATED RINGERS 1,000 ML 150 ML IV CONT (08:07)
--- NOTE | 2022-07-19 08:30 | P.PNAN_ITS ---
Anes - Initial Pre Proc Eval Procedure: Operation Date: 07/19/22 09:00 Proposed Procedures p Screening Colonoscopy - Luis Escobedo MD Date/Time: 07/19/22 08:30 Surgeon: Luis Escobedo MD Pre Op Diagnosis: hx colon polyps Patient Data Age: 61 Gender: M Height: 1.7 m Weight: 66.1 kg Last Vital Signs Temp 97.9 F 07/19/22 07:58 Pulse 94 07/19/22 07:58 Resp 18 07/19/22 07:58 BP 140/96 H 07/19/22 07:58 Pulse Ox 100 07/19/22 07:58 O2 Del Method Room Air 07/19/22 07:58 Allergies Allergy/AdvReac Type Severity Reaction Status Date / Time latex Allergy Unknown unknown Verified 07/19/22 07:57 oxycodone AdvReac Unknown NAUSEA AND Verified 07/19/22 07:57 VOMITING Home Medications Medication Instructions Recorded Confirmed Type omeprazole 40 mg capsule,delayed 40 mg PO DAILY #90 caps 02/15/22 07/03/22 Rx release ondansetron 4 mg disintegrating 4 mg PO Q8H PRN nausea and 02/15/22 07/03/22 Rx tablet vomiting #10 tabs venlafaxine 150 mg 150 mg PO DAILY #90 caps 02/15/22 07/03/22 Rx capsule,extended release 24 hr amlodipine 5 mg tablet (Norvasc) 5 mg PO DAILY #30 tabs 06/19/22 07/03/22 Rx Patient hx anesthesia problems: none Family hx anesthesia problems: none Results Review: All pre-operative results and documents have been reviewed as part of the pre- operative evaluation. [facility] Past Medical History Medical History Anxiety Surgical History Surgical History H/O: knee surgery Family History Family History Mother Family history of cardiovascular disease Father Family history of malignant neoplasm Social History Social History Smoking packs per day: 2 Smoking cigarettes per day: 40.0 Years smoked: 35 Smoking pack-years: 70.00 Smoking status: Former smoker Tobacco type: cigarettes Smoking end date: 05/21/09 Alcohol intake: former Substance use: current Substance use type: marijuana Other substance usage details: CBD Living arrangements: alone Gender identity (if verbalized by the patient): Male Spiritual care concerns: No Anes - Eval Final PreProcedure Day of Procedure 07/19/22 08:30 Patient weight: normal Heart: regular rate and rhythm Lungs: clear to auscultation Airway: Mallampati scale class II Neurological: alert and oriented Last oral intake: >/= 8 hours ASA classification: II Emergent: no Anesthetic plan: proceed Anesthesia type and monitoring: general GIVS and standard monitoring Results Review: All pre-operative results and documents have been reviewed as part of the pre- operative evaluation. Informed Consent: The patient's anesthetic plan and its attendant risks and benefits were discussed with the patient/family/POA. Questions were solicited and answers provided to the satisfaction of the patient/family/POA.
--- NOTE | 2022-07-19 08:49 | PM.HPGS ---
History of Present Illness History of Present Illness Consent: Risks, benefits, and alternatives have been discussed and questions answered. Patient agrees to proceed with procedure. Chief complaint: hx colon polyps Narrative: Gabe Moses is a 61 year old male with colon polyps in 2018 Review of Systems Constitutional: Constitutional: Denies headache(s) and Denies weakness Eyes: Eyes: Denies blurry vision ENT: Reports Normal hearing present, Denies headache(s) and Denies neck pain Cardiovascular: Cardiovascular: Denies chest pain and Denies dyspnea Respiratory: Respiratory: Denies dyspnea Gastrointestinal: Gastrointestinal: Reports no additional gastrointestinal complaints Genitourinary: Genitourinary: Denies dysuria Musculoskeletal: Musculoskeletal: Denies neck pain Integumentary/Breasts: Skin/Breast: Denies dry skin Neurologic: Reports Normal hearing present, Denies headache(s) and Denies weakness Psychiatric: Psychiatric: Denies anxiety Endocrine: Endocrine: Denies change in body appearance Hematologic/Lymphatic: Hematologic/Lymphatic: Denies easy bleeding Allergic/Immunologic: Allergic/Immunologic: Denies urticaria PMFSH Past Medical History Medical History Anxiety Surgical History Surgical History H/O: knee surgery Family History Family History Mother Family history of cardiovascular disease Father Family history of malignant neoplasm Social History Social History Smoking packs per day: 2 Smoking cigarettes per day: 40.0 Years smoked: 35 Smoking pack-years: 70.00 Smoking status: Former smoker Tobacco type: cigarettes Smoking end date: 05/21/09 Alcohol intake: former Substance use: current Substance use type: marijuana Other substance usage details: CBD Living arrangements: alone Gender identity (if verbalized by the patient): Male Spiritual care concerns: No Meds Home Medications and Allergies Home Medications Medication Instructions Recorded Confirmed Type omeprazole 40 mg capsule,delayed 40 mg PO DAILY #90 caps 02/15/22 07/03/22 Rx release ondansetron 4 mg disintegrating 4 mg PO Q8H PRN nausea and 02/15/22 07/03/22 Rx tablet vomiting #10 tabs venlafaxine 150 mg 150 mg PO DAILY #90 caps 02/15/22 07/03/22 Rx capsule,extended release 24 hr amlodipine 5 mg tablet (Norvasc) 5 mg PO DAILY #30 tabs 06/19/22 07/03/22 Rx Allergies Allergy/AdvReac Type Severity Reaction Status Date / Time latex Allergy Unknown unknown Verified 07/19/22 07:57 oxycodone AdvReac Unknown NAUSEA AND Verified 07/19/22 07:57 VOMITING Vital Signs Vital Signs - 24 hr 07/19/22 07:58 Temperature 97.9 F Pulse Rate 94 Respiratory Rate 18 Blood Pressure 140/96 H Pulse Oximetry 100 Oxygen Delivery Room Air Exam Const: General: comfortable and no acute distress HENMT: Face/Nose/Sinus: Normal nares present Eyes: General: appearance normal, both eyes and all related structures Neck: Neck: no JVD Resp: Auscultation: clear to auscultation bilaterally Cardio: Rate: regular rate Rhythm: regular rhythm GI: Inspection: non-distended GI Palp: Yes Soft to palpation Skin: General skin exam: normal color Neuro: General: gait normal Speech: normal speech Extrem: General: normal to inspection Psych: Mental Status: mental status grossly normal Assessment and Plan Assessment and plan (1) Colon cancer screening: Code(s): Z12.11 - Encounter for screening for malignant neoplasm of colon Status: Acute Assessment and Plan: colonoscopy
[2022-07-19 09:08] VITALS: BP 113/72; PULSE 77; RESP 16; O2SAT 96
[2022-07-19 09:18] VITALS: BP 111/74; PULSE 73; RESP 16; O2SAT 97
[2022-07-19 09:28] VITALS: BP 132/73; PULSE 72; RESP 13; O2SAT 100
== END 2022-07-19 09:38 | disposition home or self-care (01) ==
PROVIDERS: PCP Emergency Medicine; Visit Provider Internal Medicine Gastroenterology
PROC: 0DJD8ZZ Inspection of Lower Intestinal Tract, Via Natural or Artificial Opening Endoscopic (ICD-10-PCS; CPT 45378; principal; 2022-07-19 09:00)
DX: Z12.11 Encounter for screening for malignant neoplasm of colon (principal); D12.2 Benign neoplasm of ascending colon; K57.30 Diverticulosis of large intestine without perforation or abscess without bleeding; K64.8 Other hemorrhoids; F41.9 Anxiety disorder, unspecified; Z87.891 Personal history of nicotine dependence; F12.90 Cannabis use, unspecified, uncomplicated
CPT/HCPCS: 45385; 88305; J2704; J7120

== ENCOUNTER 2022-09-01 18:35 | Emergency (ER) | payer MEDICARE, MEDICAID, SELFPAY ==
[2022-09-01] VITALS (36 sets, daily range): BP systolic 160–185; BP diastolic 82–139; PULSE 53–87; RESP 12–23; TEMP 36.3; O2SAT 95–100
--- NOTE | ~2022-09-01 | CT_ITS ---
EXAMINATION: CT abdomen pelvis w con INDICATION: Left lower quadrant pain TECHNIQUE: Computed tomographic images of the abdomen and pelvis were obtained after the administrati on of 100 cc of Omnipaque 350 intravenous contrast. The dose-length product (DLP) was 435.20 mGy-cm. Automated exposure control and iterative reconstruction technique were employed. COMPARISON: 01/11/2022 FINDINGS: Minimal dependent atelectasis is present in the lung bases. The heart size is normal. There is a stable 3 mm nodule of the right lower lobe. Cysts of the liver measure up to 10 mm. The spleen, pancreas, gallbladder, and adrenal glands are normal. Hypoattenuating lesions in the kidneys, measur ing up to 5 mm on the left, are too small to characterize but likely represent cysts. There is calcif ied atherosclerosis of the aorta and many of the other arteries. No pathologically enlarged abdominal or pelvic lymph nodes are identified. The appendix is normal. Colonic diverticulosis is present with out evidence of diverticulitis. No free intraperitoneal gas or evidence of bowel obstruction. There i s a small umbilical hernia containing fat. There is moderate lumbar spondylosis. IMPRESSION: 1. No CT correlate for the patient's symptoms. Reviewed, dictated and finalized at location F.
--- NOTE | ~2022-09-01 | XR_ITS ---
EXAMINATION: XR chest 2V DATE: 09/01/2022 19:30 INDICATION: Weakness and shortness of breath TECHNIQUE: Frontal and lateral views of the chest are obtained COMPARISON: 01/08/2020 FINDINGS: The lungs are free of acute opacities. No pleural effusion or pneumothorax. The cardiomedia stinal silhouette is normal. There is mild thoracic spondylosis. IMPRESSION: 1. No acute cardiopulmonary abnormality. Reviewed, dictated and finalized at location F.
--- NOTE | ~2022-09-01 | CT_ITS ---
EXAMINATION: CT brain wo con INDICATION: Left-sided numbness and weakness COMPARISON: 01/08/2020 TECHNIQUE: Standard unenhanced head CT. The dose-length product (DLP) was 605.33 mGy-cm. The mA was a djusted according to patient size. Iterative reconstruction technique was employed. FINDINGS: There is no intracranial hemorrhage, acute infarction, or abnormal mass lesion. The ventric les are normal. There is no abnormal mass effect or midline shift. The butler-white matter differentiat ion is normal. The basal cisterns are patent. The orbits are normal. The paranasal sinuses, mastoids and calvarium are normal. IMPRESSION: 1. No acute intracranial abnormality. Reviewed, dictated and finalized at location F.
--- NOTE | 2022-09-01 18:37 | ECG_ITS ---
Measurements Intervals [place] Rate: 58 P: 40 [place]: 145 QRS: 87 QRSD: 101 T: 67 QT: 419 QTc: 413 Interpretive Statements SINUS BRADYCARDIA WITH SINUS ARRHYTHMIA COMPARED TO ECG 01/08/2020 15:34:37 SINUS BRADYCARDIA NOW PRESENT Electronically Signed On 09-02-2022 22:10:51 CDT by Nanci Warner M.D.
[2022-09-01 18:49] LABS: Glucose Point of Care 125 mg/dl (65-105)
[2022-09-01 19:08] LABS: Basophils Absolute Auto 0.1 K/mm3 (0.0-0.1); Basophils Percent Auto 0.9 % (0.2-1.2); Eosinophils Absolute Auto 0.2 K/mm3 (0-0.3); Eosinophils Percent Auto 1.5 % (0-4.4); Hematocrit 40.5 % (42.0-52.0); Hemoglobin 13.9 g/dL (14.0-18.0); Immature Granulocyte Absolute 0.07 K/mm3 (0.00-0.031); Immature Granulocyte Percent A 0.5 % (0-0.5); Lymphocytes Absolute Auto 2.23 K/mm3 (0.9-3.2); Lymphocytes Percent Auto 16.3 % (18.3-44.2); Mean Corpuscular HGB Conc 34.3 g/dl (32-36); Mean Corpuscular Hemoglobin 31.6 pg (26-34); Mean Platelet Volume 8.9 fl (7.4-10.4); Monocytes Absolute Auto 0.7 K/mm3 (0.1-0.6); Monocytes Percent Auto 5.3 % (2.6-8.5); Neutrophils Absolute Auto 10.3 K/mm3 (1.3-6.7); Neutrophils Percent Auto 75.5 % (45.5-73.1); Platelet Count Result 381 k/mm3 (150-375); Red Cell Distribution Width 13.2 % (11.5-14.5); White Blood Count 13.7 K/mm3 (4.5-10.0)
[2022-09-01 19:15] LABS: Appearance Urine Clear (Clear); Bacteria Urine None Seen /hpf; Bilirubin Urine Negative (Negative); Blood Urine Negative (Negative); Color Urine Yellow (Yellow); Glucose Urine UA Negative (Negative); Ketones Urine 2+ mg/dL (Negative); Leukocyte Esterase Ur Negative LEU/UL (Negative); Nitrate Urine Negative (Negative); Non Pathogenic Casts 0-2; Protein Urine Trace mg/dL (Negative); RBC Urine 0-2 /hpf (0-2); Specific Grav Ur 1.021 (1.001-1.035); Squamous Epithelial Cell Urine None seen /hpf (Few); WBC Urine 0-5 /hpf; pH Urine 7.5 (5.0-9.0)
[2022-09-01 19:18] LABS: Alanine Aminotransferase 31 U/L (6-50); Albumin Level 4.9 g/dL (3.5-5.1); Alkaline Phosphatase 73 U/L (38-126); Anion Gap 11 mmol/L (8-16); Aspartate Amino Transferase 46 U/L (17-59); Bilirubin,Total 0.8 mg/dL (0.2-1.3); Blood Urea Nitrogen 18 mg/dL (9-20); Carbon Dioxide 23 mmol/L (22-30); Chloride 106 mmol/L (98-107); Estimated CRCL calculation 64 ml/min; Estimated Glomerular Filt Rate > 60; Glucose 119 mg/dL (65-110); Lipase 162 U/L (23-300); Potassium 3.8 mmol/L (3.4-5.0); Sodium 140 mmol/L (137-145)
[2022-09-01 19:21] LABS: Add Urine Microscopic? YES
--- NOTE | 2022-09-01 21:03 | PC.NURSE ---
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 Katie [phone] Mike [phone]
[2022-09-01 21:21] LABS: Magnesium 2.1 mg/dL (1.6-2.3)
[2022-09-01] MEDS: SODIUM CHLORIDE 0.9% IV 1,000 ML 999 ML IV CONT ×2 (21:27→23:09)
[2022-09-01] MEDS: ONDANSETRON INJ 4 MG/2 ML VIAL IV PUSH ×2 (21:27→23:08)
[2022-09-01 21:29] LABS: Creatine Kinase 261 U/L (55-170)
[2022-09-01 21:30] LABS: Lactic Acid Reflex 1.1 mmol/L (0.7-2.0)
[2022-09-01 21:33] LABS: Troponin I < 0.012 ng/mL (0.000-0.034)
[2022-09-01 21:42] LABS: Troponin I < 0.012 ng/mL (0.000-0.034)
[2022-09-01 21:53] LABS: Influenza A QL RT-PCR Negative (Negative); Influenza B QL RT-PCR Negative (Negative); SARS-CoV-2 RNA PCR Negative
[2022-09-01] MEDS: diphenhydrAMINE HCl INJ 50 MG/ML VIAL IV PUSH (23:08)
[2022-09-01] MEDS: PROCHLORPERAZINE EDISYLATE 10 MG/2 ML VIAL IV PUSH (23:11)
[2022-09-02] VITALS (16 sets, daily range): BP systolic 164–179; BP diastolic 89–94; PULSE 72–104; RESP 14–25; O2SAT 97–99
--- NOTE | 2022-09-02 02:38 | ED.GENADULT ---
HPI - General Adult General Chief complaint: Weakness Stated complaint: n/v, diaphoretic, left sided numbness Time Seen by Provider: 09/01/22 20:51 History of Present Illness HPI narrative: Patient is 61-year-old gentleman who presents emerged department with chief complaint of generalized weakness dizziness nausea vomiting patient states that he went out and was cutting his grass today and reports that he started getting chills became diaphoretic had some tingling on the left side of his body. Patient states this feels similar to when he had episodes of dehydration and reports that he is very susceptible to being out of the heat patient reports that he has not really eaten much and has not really slept much over the last several days. Related Data Allergies Allergy/AdvReac Type Severity Reaction Status Date / Time latex Allergy Unknown unknown Verified 09/01/22 18:59 oxycodone AdvReac Unknown NAUSEA AND Verified 09/01/22 18:59 VOMITING Review of Systems Review of Systems: A 10 system review of systems was completed on the patient and is negative except for what is stated in the HPI. Nursing and ancillary documentation was reviewed. [facility] Past Medical History Medical History (Updated 09/02/22 @ 02:46 by Parmjit López MD) Anxiety Surgical History Surgical History H/O: knee surgery Family History Family History Mother Family history of cardiovascular disease Father Family history of malignant neoplasm Social History Social History Smoking packs per day: 2 Smoking cigarettes per day: 40.0 Years smoked: 35 Smoking pack-years: 70.00 Smoking status: Former smoker Tobacco type: cigarettes Smoking end date: 05/21/09 Alcohol intake: former Substance use: current Substance use type: marijuana Other substance usage details: CBD Living arrangements: alone Gender identity (if verbalized by the patient): Male Spiritual care concerns: No Exam Narrative: GENERAL: Well-appearing, well-nourished, and in no acute distress. HEAD: Normocephalic, atraumatic. EYES: PERRLA and EOMI. ENT: Nares clear, no rhinorrhea or epistaxis. Mucous membranes moist. NECK: Supple. CHEST: Clear to auscultation. No respiratory distress. HEART: Regular rate and rhythm. No murmur heard. Normal peripheral pulses. ABDOMEN: Soft, nontender, nondistended, normal active bowel sounds. EXTREMITIES: Normal range of motion. No edema. SKIN: Warm, dry, no rash. NEURO: No focal deficits. Alert and oriented x3. NIH stroke scale 0 PSYCH: Normal mood and affect. Course Vital Signs Vital signs: Vital Signs Temperature 36.3 C L 09/01/22 18:31 Pulse Rate 69 09/01/22 18:31 Respiratory Rate 15 09/01/22 18:31 Blood Pressure 160/82 H 09/01/22 18:31 Pulse Oximetry 100 09/01/22 18:31 Oxygen Delivery Room Air 09/01/22 18:31 Temperature 36.3 C L 09/01/22 18:31 Pulse Rate 72 09/02/22 00:33 Respiratory Rate 20 09/02/22 00:33 Blood Pressure 174/94 H 09/02/22 00:16 Pulse Oximetry 99 09/02/22 00:33 Oxygen Delivery Room Air 09/01/22 18:31 Medical Decision Making [facility] Narrative Medical decision making narrative: Differential diagnosis includes electrolyte abnormality, dehydration, heatstroke, ACS gastroenteritis, CVA Patient initial presentation and x-ray showed 0 laboratory studies were obtained which showed a WBC count of 13.7 electrolytes showed a lactic acid of 1.1 magnesium of 2.1 normal LFTs creatinine is 1.0 and a BUN of 18 potassium was 3.8 Chest x-ray showed no focal abnormalities CT head showed no acute findings CT abdomen pelvis showed no acute findings. Influenza was negative COVID was negative urinalysis just showed 2+ ketones The patient received 2 L of normal saline and is feel
== END 2022-09-02 02:59 | disposition home or self-care (01) ==
PROVIDERS: Emergency Medicine; Emergency Provider Emergency Medicine; PCP Emergency Medicine
DX: E86.0 Dehydration (principal); R11.2 Nausea with vomiting, unspecified; Z20.822 Contact with and (suspected) exposure to COVID-19; Z87.891 Personal history of nicotine dependence
CPT/HCPCS: 36415; 70450; 71046; 74177; 80053; 81001; 82550; 82948; 83605; 83690; 83735; 84484; 85025; 87636; 93005; 96361; 96374; 96375; 99284; J0780; J1200; J2405; J7030; Q9967

== ENCOUNTER 2022-11-14 21:05 | Emergency (ER) | payer MEDICARE, MEDICAID, SELFPAY ==
[2022-11-14 21:09] VITALS: BP 166/82; PULSE 78; RESP 15; TEMP 36.7; O2SAT 100
[2022-11-14 21:21] LABS: Basophils Absolute Auto 0.1 K/mm3 (0.0-0.1); Basophils Percent Auto 0.4 % (0.2-1.2); Hemoglobin 14.1 g/dL (14.0-18.0); Immature Granulocyte Absolute 0.03 K/mm3 (0.00-0.031); Immature Granulocyte Percent A 0.2 % (0-0.5); Lymphocytes Absolute Auto 0.96 K/mm3 (0.9-3.2); Lymphocytes Percent Auto 7.4 % (18.3-44.2); Mean Corpuscular HGB Conc 35.3 g/dl (32-36); Mean Corpuscular Hemoglobin 31.5 pg (26-34); Mean Corpuscular Volume 89.5 fl (80-100); Monocytes Absolute Auto 0.2 K/mm3 (0.1-0.6); Monocytes Percent Auto 1.9 % (2.6-8.5); Neutrophils Absolute Auto 11.7 K/mm3 (1.3-6.7); Neutrophils Percent Auto 90.1 % (45.5-73.1); Platelet Count Result 350 k/mm3 (150-375); Red Blood Count 4.47 M/mm3 (4.6-6.20); Red Cell Distribution Width 12.6 % (11.5-14.5); White Blood Count 12.9 K/mm3 (4.5-10.0)
[2022-11-14 21:31] LABS: Alanine Aminotransferase 33 U/L (6-50); Alkaline Phosphatase 84 U/L (38-126); Anion Gap 12 mmol/L (8-16); Aspartate Amino Transferase 34 U/L (17-59); Bilirubin,Total 0.5 mg/dL (0.2-1.3); Blood Urea Nitrogen 15 mg/dL (9-20); Calcium 10.1 mg/dL (8.4-10.2); Carbon Dioxide 22 mmol/L (22-30); Chloride 105 mmol/L (98-107); Estimated CRCL calculation 78 ml/min; Estimated Glomerular Filt Rate > 60; Glucose 166 mg/dL (65-110); Lipase 163 U/L (23-300); Sodium 139 mmol/L (137-145)
[2022-11-14 22:34] LABS: Appearance Urine Clear (Clear); Bacteria Urine None Seen /hpf; Bilirubin Urine Negative (Negative); Blood Urine Trace (Negative); Color Urine Yellow (Yellow); Glucose Urine UA Negative (Negative); Ketones Urine Trace mg/dL (Negative); Leukocyte Esterase Ur Negative LEU/UL (Negative); Nitrate Urine Negative (Negative); Non Pathogenic Casts 0-2; Protein Urine 2+ mg/dL (Negative); Specific Grav Ur 1.019 (1.001-1.035); Squamous Epithelial Cell Urine None seen /hpf (Few); Urobilinogen Urine 0.2 mg/dL (<2.0); WBC Urine 0-5 /hpf; pH Urine 7.5 (5.0-9.0)
[2022-11-14 22:42] LABS: Add Urine Microscopic? YES
[2022-11-14] MEDS: ONDANSETRON INJ 4 MG/2 ML VIAL IV PUSH (23:24)
[2022-11-14] MEDS: LACTATED RINGERS 1,000 ML 999 ML IV CONT (23:25)
[2022-11-14 23:32] VITALS: PULSE 88; RESP 12; O2SAT 100
[2022-11-14 23:34] VITALS: BP 138/84; PULSE 79; RESP 15; O2SAT 98
--- NOTE | 2022-11-14 23:56 | ED.NAVMDI ---
HPI - Nausea/Vomiting/Diarrhea General Chief complaint: Nausea/Vomiting/Diarrhea Stated complaint: dehydration Time Seen by Provider: 11/14/22 23:12 History of Present Illness HPI Narrative: Patient presents with nausea vomiting, he states that this started earlier today and he has not been able to keep anything down, this is happened to him multiple times he states since he turned 50, he does report using heavy amounts of marijuana daily. Related Data Home Medications Medication Instructions Recorded Confirmed amlodipine 10 mg tablet 10 mg PO DAILY 10/18/22 Allergies Allergy/AdvReac Type Severity Reaction Status Date / Time latex Allergy Unknown unknown Verified 11/14/22 23:30 oxycodone AdvReac Unknown NAUSEA AND Verified 11/14/22 23:30 VOMITING Review of Systems Review of Systems: CONST: No fever. HEENT: No sore throat C/V: No chest pain RESP: No cough GI: No abdominal pain, does report nausea, vomiting : No dysuria. M/S: No joint pain. SKIN: No rash. NEURO: [No headache or focal numbness or weakness] PSYCH: [No depression] PMFSH Past Medical History Medical History Anxiety Surgical History Surgical History H/O: knee surgery Family History Family History Mother Family history of cardiovascular disease Father Family history of malignant neoplasm Social History Social History Smoking packs per day: 2 Smoking cigarettes per day: 40.0 Years smoked: 35 Smoking pack-years: 70.00 Smoking status: Former smoker Tobacco type: cigarettes Smoking end date: 05/21/09 Alcohol intake: former Substance use: current Substance use type: marijuana Other substance usage details: CBD Living arrangements: alone Gender identity (if verbalized by the patient): Male Spiritual care concerns: No Exam Narrative: EXAMINATION OF ORGAN SYSTEMS/BODY AREAS: Constitutional: Vital signs per nursing GENERAL:[No acute distress, non-toxic appearing.] HEAD: Normal with no signs of head trauma. EYES: EOMI, conjunctiva normal ENT: Hearing grossly intact LUNGS: Nonlabored breathing. HEART: [Regular rate and rhythm] ABD: [Soft], [nontender to palpation]. No flank pain EXT: Normal range of motion SKIN: [No rashes or lesions.] NEURO: [Alert and oriented x 3. No gross focal sensory or strength deficits.] PSYCH: Normal affect Course Vital Signs Vital signs: Vital Signs Temperature 98.1 F 11/14/22 21:09 Pulse Rate 78 11/14/22 21:09 Respiratory Rate 15 11/14/22 21:09 Blood Pressure 166/82 H 11/14/22 21:09 Pulse Oximetry 100 11/14/22 21:09 Oxygen Delivery Room Air 11/14/22 21:09 Temperature 98.1 F 11/14/22 21:09 Pulse Rate 79 11/14/22 23:34 Respiratory Rate 15 11/14/22 23:34 Blood Pressure 138/84 11/14/22 23:34 Pulse Oximetry 98 11/14/22 23:34 Oxygen Delivery Room Air 11/14/22 21:09 MDM - Nausea/Vomiting/Diarrhea MDM Narrative Medical decision making narrative: 62-year-old male presenting with nausea vomiting, he has had multiple episodes of this on and off for the last 12 years, he is a heavy marijuana user, he has no abdominal pain. Vital signs stable here, he is started on IV fluids and Zofran, on reevaluation he is feeling much better, very comfortable, abdominal exam is soft, benign, he is ready go home, labs are within acceptable limits other than very minimally elevated white count which is similar to his last, and some mild hematuria, he denies having any flank pain or abdominal pain whatsoever and has no kidney stones in the past and has had multiple imaging studies done for his years of abdominal pain, so I will not repeat a CT here, I did urged him to follow-up with urology and with some primary care doctor. Stable for di
[2022-11-15] VITALS: BP 143/93; PULSE 89; RESP 17; O2SAT 97
[2022-11-15 00:30] VITALS: BP 144/81; PULSE 82; RESP 19; O2SAT 96
[2022-11-15 01:00] VITALS: BP 147/84; PULSE 80; RESP 15; O2SAT 97
[2022-11-15 01:30] VITALS: BP 146/88; PULSE 85; RESP 15; O2SAT 97
[2022-11-15 02:40] VITALS: BP 159/85; PULSE 84; RESP 19; O2SAT 97
== END 2022-11-15 02:40 | disposition home or self-care (01) ==
LOC: ANHED 23:59
PROVIDERS: Emergency Medicine; Emergency Provider Emergency Medicine; PCP Emergency Medicine
DX: R11.2 Nausea with vomiting, unspecified (principal); F41.9 Anxiety disorder, unspecified
CPT/HCPCS: 36415; 80053; 81001; 83690; 85025; 96361; 96374; 99284; J2405; J7120

== ENCOUNTER 2023-01-14 10:30 | Emergency (ER) | payer MEDICARE, MEDICAID, SELFPAY ==
[2023-01-14] VITALS (16 sets, daily range): BP systolic 148–184; BP diastolic 86–107; PULSE 58–79; RESP 13–18; TEMP 36.3–37; O2SAT 100
--- NOTE | ~2023-01-14 | CT_ITS ---
EXAMINATION: CT abdomen pelvis w con DATE: 01/14/2023 15:03 INDICATION: Vomiting and epigastric pain TECHNIQUE: Computed tomography (CT) of the abdomen and pelvis was performed with 100 mL Omnipaque-350 intravenous contrast. Automated exposure control and iterative reconstruction technique were employe d. The dose-length product was 257.01 mGy-cm. COMPARISON: None FINDINGS: Mild emphysema. Heart size is normal. No pericardial or pleural effusion. A few small low-attenuation hepatic cysts measuring up to 1 cm. Gallbladder, spleen, pancreas and bilateral adrenal glands are n ormal. A few small low-attenuation cysts measuring up to 8 mm at the lower pole the left kidney. A co uple small regions of cortical scarring at the upper thoracic both kidneys which could represent sequ janee of prior infection or infarction. Small fat-containing umbilical hernia. There is moderate coloni c diverticulosis with a sigmoid and descending colon predominance without adjacent inflammatory licea e to suggest diverticulitis. Small bowel and appendix are normal. Bladder is normal. Prostatomegaly. No free intraperitoneal gas or fluid. No pathologically enlarged abdominal or pelvic lymphadenopathy. There is calcified atherosclerosis of the aorta and many of the other arteries. Mild thoracolumbar d extroscoliosis with moderate to severe lumbar spondylosis. IMPRESSION: 1. No acute intra-abdominal/pelvic process. 2. Diverticulosis. 3. Prostatomegaly. Reviewed, dictated and finalized at location A.
--- NOTE | 2023-01-14 10:41 | ED.ABDPAIN ---
HPI - Abdominal Pain General Chief Complaint: Abdominal Pain <Yue Dumont PA-C - Last Filed: 01/14/23 17:19> Stated Complaint: abd pain <Yue Dumont PA-C - Last Filed: 01/14/23 17:19> Time Seen by Provider: 01/14/23 10:35 <Yue Dumont PA-C - Last Filed: 01/14/23 17:19> History of Present Illness HPI narrative: 62-year-old male with history of cannabinoid hyperemesis syndrome, GERD, pancreatitis reports for evaluation for nausea, diaphoresis and dry heaving since 0800 this morning. Patient states that this is happened to him multiple times before and it is because he becomes dehydrated. He reports he has been drinking a lot of water but has decreased urine output. States his sx improve with a hot shower. He reports epigastric abdominal discomfort. Denies back pain changed from his baseline, chest pain, shortness of breath, fever, dysuria or hematuria, scrotal pain, diarrhea or constipation, cough, congestion. Last bowel movement was this morning and normal. He does report using marijuana occasionally , last time was this morning prior to arrival. Denies other drug use or alcohol use. Pt is requesting a COVID test. <Yue Dumont PA-C - Last Filed: 01/14/23 17:19> Related Data Allergies/Adverse Reactions: Allergies Allergy/AdvReac Type Severity Reaction Status Date / Time latex Allergy Unknown unknown Verified 01/14/23 11:11 oxycodone AdvReac Unknown NAUSEA AND Verified 01/14/23 11:11 VOMITING <Yue Dumont PA-C - Last Filed: 01/14/23 17:19> Review of Systems Review of Systems: CONSTITUTIONAL: Denies fever, chills EYES: Denies visual changes, redness, or discharge. ENT: Denies rhinorrhea, congestion, sore throat, or otalgia. CARDIOVASCULAR: Denies chest pain, palpitations, or edema. RESPIRATORY: Denies cough or dyspnea. GASTROINTESTINAL: See HPI GENITOURINARY: Denies dysuria or hematuria. SKIN: Denies rash or itching. MUSCULOSKELETAL: Denies back pain, joint pain, or myalgia. NEUROLOGIC: Denies headache, numbness, dizziness, or weakness. PSYCHIATRIC: Denies anxiety or depression. <Yue Dumont PA-C - Last Filed: 01/14/23 17:19> [facility] Past Medical History Medical History: Medical History (Updated 01/15/23 @ 00:01 by Froy Riggins) Anxiety <Yue Dumont PA-C - Last Filed: 01/14/23 17:19> Surgical History Surgical History: Surgical History H/O: knee surgery <Yue Dumont PA-C - Last Filed: 01/14/23 17:19> Family History Family History: Family History Mother Family history of cardiovascular disease Father Family history of malignant neoplasm <Yue Dumont PA-C - Last Filed: 01/14/23 17:19> Social History Social History: Social History Smoking packs per day: 2 Smoking cigarettes per day: 40.0 Years smoked: 35 Smoking pack-years: 70.00 Smoking status: Former smoker Tobacco type: cigarettes Smoking end date: 05/21/09 Alcohol intake: former Substance use: current Substance use type: marijuana Other substance usage details: CBD Living arrangements: alone Gender identity (if verbalized by the patient): Male Spiritual care concerns: No <Yue Dumont PA-C - Last Filed: 01/14/23 17:19> Exam Narrative: GENERAL: Non toxic appearing. Restless in exam bed. HEAD: Normocephalic EYES: PERRLA ENT: Nares clear. Mucous membranes moist. Oropharynx without tonsillar hypertrophy exudate or other lesions. NECK: Supple. CHEST: No respiratory distress. Clear to auscultation, no adventitious breath sounds. HEART: Regular rate and rhythm. No murmur heard. Normal peripheral pulses. ABDOMEN: Soft, nontender, normal active bowel sounds. No CVA tenderness. EXTREMITIES: Normal range of motion. No edema.
[2023-01-14] MEDS: SODIUM CHLORIDE 0.9% IV 1,000 ML 999 ML IV CONT ×2 (11:04→12:18)
[2023-01-14] MEDS: ONDANSETRON INJ 4 MG/2 ML VIAL IV PUSH ×2 (11:04→12:19)
[2023-01-14 11:15] LABS: Hematocrit 42.5 % (42.0-52.0); Hemoglobin 14.5 g/dL (14.0-18.0); Immature Granulocyte Percent A 0.3 % (0-0.5); Mean Corpuscular HGB Conc 34.1 g/dl (32-36); Mean Platelet Volume 9.3 fl (7.4-10.4); Neutrophils Percent Auto 77.7 % (45.5-73.1); Platelet Count Result 359 k/mm3 (150-375); Red Blood Count 4.67 M/mm3 (4.6-6.20); Red Cell Distribution Width 12.7 % (11.5-14.5); White Blood Count 14.5 K/mm3 (4.5-10.0)
[2023-01-14 11:16] LABS: Basophils Absolute Auto 0.1 K/mm3 (0.0-0.1); Basophils Percent Auto 0.7 % (0.2-1.2); Eosinophils Absolute Auto 0.3 K/mm3 (0-0.3); Eosinophils Percent Auto 2.1 % (0-4.4); Immature Granulocyte Absolute 0.05 K/mm3 (0.00-0.031); Lymphocytes Percent Auto 15.2 % (18.3-44.2); Monocytes Absolute Auto 0.6 K/mm3 (0.1-0.6); Neutrophils Absolute Auto 11.2 K/mm3 (1.3-6.7)
[2023-01-14 11:18] LABS: Appearance Urine Cloudy (Clear); Bacteria Urine None Seen /hpf; Bilirubin Urine Negative (Negative); Blood Urine Negative (Negative); Color Urine Yellow (Yellow); Glucose Urine UA Negative (Negative); Ketones Urine Negative (Negative); Leukocyte Esterase Ur Negative LEU/UL (Negative); Nitrate Urine Negative (Negative); Non Pathogenic Casts 0-2; Protein Urine Negative (Negative); RBC Urine 0-2 /hpf (0-2); Specific Grav Ur 1.015 (1.001-1.035); Squamous Epithelial Cell Urine None seen /hpf (Few); Urobilinogen Urine 0.2 mg/dL (<2.0); WBC Urine 0-5 /hpf; pH Urine 8.5 (5.0-9.0)
[2023-01-14 11:30] LABS: Add Urine Microscopic? YES
[2023-01-14 11:45] LABS: Alanine Aminotransferase 25 U/L (6-50); Albumin Level 4.7 g/dL (3.5-5.1); Alkaline Phosphatase 71 U/L (38-126); Anion Gap 6 mmol/L (8-16); Aspartate Amino Transferase 38 U/L (17-59); Bilirubin,Total 0.6 mg/dL (0.2-1.3); Blood Urea Nitrogen 13 mg/dL (9-20); Carbon Dioxide 24 mmol/L (22-30); Chloride 110 mmol/L (98-107); Estimated CRCL calculation 74 ml/min; Estimated Glomerular Filt Rate > 60; Glucose 157 mg/dL (65-110); Lipase 151 U/L (23-300); Potassium 4.3 mmol/L (3.4-5.0); Sodium 140 mmol/L (137-145)
[2023-01-14] MEDS: HALOPERIDOL LACTATE 5 MG/ML VIAL IM (13:48)
[2023-01-14 14:40] LABS: Influenza A QL RT-PCR Negative (Negative); Influenza B QL RT-PCR Negative (Negative); SARS-CoV-2 RNA PCR Negative (Negative)
[2023-01-14] MEDS: LORazepam INJ (*CRX) 2 MG/ML VIAL 1 MG IV PUSH (14:49)
== END 2023-01-14 16:37 | disposition home or self-care (01) ==
PROVIDERS: Emergency Medicine; Emergency Provider Physician Assistant; PCP Emergency Medicine
DX: R11.2 Nausea with vomiting, unspecified (principal); Z87.891 Personal history of nicotine dependence; Z20.822 Contact with and (suspected) exposure to COVID-19
CPT/HCPCS: 36415; 74177; 80053; 81001; 83690; 85025; 87636; 96361; 96372; 96374; 96375; 96376; 99284; J1630; J2060; J2405; J7030; Q9967

== ENCOUNTER 2023-05-05 12:12 | Emergency (ER) | payer MEDICARE, MEDICAID, SELFPAY ==
--- NOTE | ~2023-05-05 | CT_ITS ---
EXAMINATION: CT abdomen pelvis w con DATE: 05/05/2023 13:17 INDICATION: Epigastric pain. Nausea and vomiting. TECHNIQUE: Computed tomography (CT) of the abdomen and pelvis was performed with 100 cc Omnipaque 350 intravenous contrast. The dose-length product was 637.94 mGy-cm. Automated exposure control and iter ative reconstruction technique were employed. COMPARISON: CT dated 01/14/2023 FINDINGS: There is dependent atelectasis. Heart size normal. No significant pleural or pericardial ef fusion. Small fat-containing umbilical hernia. Nonobstructive bowel gas pattern. Colonic diverticulos is without evidence for diverticulitis. No lymphadenopathy. No free air or free fluid. Small subcenti meter hypodensities of the liver, most likely benign. The spleen, pancreas, adrenal glands and kidney s are unremarkable. Gallbladder is present. Enlarged prostate gland. Moderate-severe lumbar spondylos is. There is osteoarthritis of the hips. There is dextroscoliosis of the lumbar spine. IMPRESSION: 1. No acute abdominal abnormality. Reviewed, dictated and finalized at location A. IDE POT TENDER
[2023-05-05 12:14] VITALS: BP 176/89; PULSE 76; RESP 22; TEMP 36.1; O2SAT 100
--- NOTE | 2023-05-05 12:31 | ED.GENADULT ---
HPI - General Adult General Chief complaint: Nausea/Vomiting/Diarrhea Stated complaint: abdominal pain Time Seen by Provider: 05/05/23 12:21 Source: patient Mode of arrival: ambulatory Limitations: no limitations History of Present Illness HPI narrative: this is a 62-year-old male who presents to the ED with chief complaint of a N/V beginning around 6:00 a.m.. Reports generalized abdominal pain that started after the vomiting episodes. Reports vomiting multiple times this morning. He feels that it is because he is dehydrated. Reports marijuana use last night And that he has had episodes of cyclic vomiting with cannabinoids before. Denies fevers, chills, recent illness, any concern for food poisoning, problems with bowel movements, urinary complaints, chest pain, shortness of breath. Denies GI bleeding symptoms. Denies any other substance use. Related Data Allergies Allergy/AdvReac Type Severity Reaction Status Date / Time latex Allergy Unknown unknown Verified 05/05/23 12:23 oxycodone AdvReac Unknown NAUSEA AND Verified 05/05/23 12:23 VOMITING Review of Systems Review of Systems: All systems as dictated in [facility] Past Medical History Medical History (Updated 05/05/23 @ 16:44 by Ramírez Ayala PA-C) Anxiety Surgical History Surgical History H/O: knee surgery Family History Family History Mother Family history of cardiovascular disease Father Family history of malignant neoplasm Social History Social History Smoking packs per day: 2 Smoking cigarettes per day: 40.0 Years smoked: 35 Smoking pack-years: 70.00 Smoking status: Former smoker Tobacco type: cigarettes Smoking end date: 05/21/09 Alcohol intake: former Substance use: current Substance use type: marijuana Other substance usage details: CBD Current Housing: Decline to Answer Concerned About Future Housing: Decline to Answer Difficulty Paying Gas/Electric Bills: Decline to Answer Difficulty Paying for Meds: Decline to Answer Currently Unemployed: Decline to Answer Education: Decline to Answer Difficulty w/ Childcare or Family Care: Decline to Answer Living arrangements: alone Gender identity (if verbalized by the patient): Male Spiritual care concerns: No Exam Narrative: GENERAL: Well-appearing, well-nourished, and in no acute distress. HEAD: Normocephalic, atraumatic. EYES: PERRLA and EOMI. ENT: Nares clear, no rhinorrhea or epistaxis. Mucous membranes moist. Oropharynx without tonsillar hypertrophy exudate or other lesions. NECK: Supple. No adenopathy or masses. CHEST: No respiratory distress. Clear to auscultation. No wheezes rales or rhonchi HEART: Regular rate and rhythm. No murmur heard. Normal peripheral pulses. ABDOMEN: Mild epigastric tenderness. Soft, otherwise nontender, nondistended, normal active bowel sounds. MSK: Normal range of motion. No edema. SKIN: Warm, dry, no rash. NEURO: Alert and oriented x3. No focal deficits. PSYCH: Normal mood and affect. Course Vital Signs Vital signs: Vital Signs Temperature 97 F L 05/05/23 12:14 Pulse Rate 76 05/05/23 12:14 Respiratory Rate 22 H 05/05/23 12:14 Blood Pressure 176/89 H 05/05/23 12:14 Pulse Oximetry 100 05/05/23 12:14 Oxygen Delivery Room Air 05/05/23 12:14 Temperature 98.4 F 05/05/23 16:48 Pulse Rate 75 05/05/23 16:48 Respiratory Rate 19 05/05/23 16:48 Blood Pressure 179/95 H 05/05/23 16:48 Pulse Oximetry 99 05/05/23 16:48 Oxygen Delivery Room Air 05/05/23 12:14 Medical Decision Making [facility] Narrative Medical decision making narrative: This is a 62-year-old male who presents to the ED with chief complaint of nausea and vomiting onset this morning. History of cannabinoid hyperemesis syn
[2023-05-05 12:35] LABS: Basophils Absolute Auto 0.1 K/mm3 (0.0-0.1); Basophils Percent Auto 0.6 % (0.2-1.2); Eosinophils Absolute Auto 0.1 K/mm3 (0-0.3); Eosinophils Percent Auto 0.3 % (0-4.4); Hematocrit 43.8 % (42.0-52.0); Hemoglobin 14.8 g/dL (14.0-18.0); Immature Granulocyte Absolute 0.09 K/mm3 (0.00-0.031); Immature Granulocyte Percent A 0.5 % (0-0.5); Lymphocytes Absolute Auto 2.01 K/mm3 (0.9-3.2); Lymphocytes Percent Auto 11.3 % (18.3-44.2); Mean Corpuscular HGB Conc 33.8 g/dl (32-36); Mean Corpuscular Hemoglobin 30.4 pg (26-34); Mean Corpuscular Volume 89.9 fl (80-100); Mean Platelet Volume 9.1 fl (7.4-10.4); Monocytes Absolute Auto 0.6 K/mm3 (0.1-0.6); Monocytes Percent Auto 3.2 % (2.6-8.5); Neutrophils Absolute Auto 14.9 K/mm3 (1.3-6.7); Neutrophils Percent Auto 84.1 % (45.5-73.1); Platelet Count Result 378 k/mm3 (150-375); Red Blood Count 4.87 M/mm3 (4.6-6.20); Red Cell Distribution Width 12.9 % (11.5-14.5); White Blood Count 17.7 K/mm3 (4.5-10.0)
[2023-05-05] MEDS: SODIUM CHLORIDE 0.9% IV 1,000 ML 999 ML IV CONT (12:36)
[2023-05-05] MEDS: ONDANSETRON INJ 4 MG/2 ML VIAL IV PUSH (12:36)
[2023-05-05 12:45] LABS: Alanine Aminotransferase 25 U/L (6-50); Albumin Level 4.9 g/dL (3.5-5.1); Alkaline Phosphatase 82 U/L (38-126); Anion Gap 12 mmol/L (8-16); Aspartate Amino Transferase 31 U/L (17-59); Bilirubin,Total 0.6 mg/dL (0.2-1.3); Blood Urea Nitrogen 20 mg/dL (9-20); Calcium 10.3 mg/dL (8.4-10.2); Carbon Dioxide 19 mmol/L (22-30); Chloride 109 mmol/L (98-107); Estimated CRCL calculation 61 ml/min; Estimated Glomerular Filt Rate > 60; Glucose 166 mg/dL (65-110); Lipase 109 U/L (23-300); Sodium 140 mmol/L (137-145)
[2023-05-05 12:54] LABS: Lactic Acid Reflex 2.3 mmol/L (0.7-2.0)
[2023-05-05 13:38] VITALS: BP 175/95; PULSE 83; RESP 20; TEMP 36.5; O2SAT 100
[2023-05-05 13:48] LABS: Appearance Urine Turbid (Clear); Bacteria Urine None Seen /hpf; Bilirubin Urine Negative (Negative); Blood Urine Negative (Negative); Color Urine Yellow (Yellow); Glucose Urine UA Negative (Negative); Ketones Urine 1+ mg/dL (Negative); Leukocyte Esterase Ur Negative LEU/UL (Negative); Nitrate Urine Negative (Negative); Non Pathogenic Casts 0-2; Protein Urine Negative (Negative); RBC Urine 0-2 /hpf (0-2); Specific Grav Ur 1.036 (1.001-1.035); Squamous Epithelial Cell Urine None seen /hpf (Few); Urobilinogen Urine 0.2 mg/dL (<2.0); WBC Urine 0-5 /hpf; pH Urine 8.5 (5.0-9.0)
[2023-05-05 13:49] LABS: Add Urine Microscopic? YES
[2023-05-05] MEDS: HALOPERIDOL LACTATE 5 MG/ML VIAL IM (14:44)
[2023-05-05 14:52] VITALS: BP 167/97; PULSE 85; RESP 21; O2SAT 100
[2023-05-05 15:40] LABS: Reflex Lactic Acid Yes or No Add Lactic
[2023-05-05] MEDS: PROMETHAZINE HCL 25 MG/ML AMPUL 12.5 MG IV PUSH (15:55)
[2023-05-05 16:47] LABS: Lactic Acid 1.9 mmol/L (0.7-2.0)
[2023-05-05 16:48] VITALS: BP 179/95; PULSE 75; RESP 19; TEMP 36.9; O2SAT 99
== END 2023-05-05 17:01 | disposition home or self-care (01) ==
PROVIDERS: Emergency Provider Physician Assistant; PCP Emergency Medicine
DX: R11.2 Nausea with vomiting, unspecified (principal); F41.9 Anxiety disorder, unspecified; Z87.891 Personal history of nicotine dependence
CPT/HCPCS: 36415; 74177; 80053; 81001; 83605; 83690; 85025; 96361; 96372; 96374; 96375; 99284; J1630; J2405; J2550; J7030; Q9967

== ENCOUNTER 2023-06-08 23:22 | Emergency (ER) | payer MEDICARE, MEDICAID, SELFPAY ==
--- NOTE | ~2023-06-08 | CT_ITS ---
EXAMINATION: CT UE LT w con DATE: 06/09/2023 05:18 INDICATION: Pain of entire forearm and hand. Patient bent backwards and now has severe pain radiating up arm. TECHNIQUE: Computed tomography (CT) of the left forearm, wrist and hand was performed without intrave nous contrast. Automated exposure control and iterative reconstruction technique were employed. Exam dose: 808.87 mGy-cm total exam DLP. COMPARISON: 06/09/2023.. Portable three-view examination of left hand FINDINGS: No fracture or dislocation, periosteal reaction or bone destruction of the radius or ulna. Normal alignment at the elbow and wrist joints. Prominent cystic change of the lunate bone. There is prominent osteoarthritic change at the first carpometacarpal joint. No fracture or dislocation of the left wrist or hand is detected.. 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 Reviewed, dictated and finalized at location A. ENT PATTERNMAKER
--- NOTE | ~2023-06-08 | XR_ITS ---
XR hand LT min 3V DATE: 06/09/2023 00:44 INDICATION: First digit injury TECHNIQUE: 3 portable views COMPARISON: 06/09/2023 CT left upper extremity FINDINGS: There is prominent osteophytic change at the first carpometacarpal joint. Prominent cystic change at the lunate bone. No fracture, dislocation, periosteal reaction or bone destruction is detected. IMPRESSION: Prominent cystic change of the lunate bone Prominent osteoarthritic change at the first carpometacarpal joint Reviewed, dictated and finalized at location A. OGRAPH PRINTER
[2023-06-08 23:33] VITALS: BP 149/88; PULSE 87; RESP 20; TEMP 36.7; O2SAT 98
--- NOTE | 2023-06-09 03:28 | ED.UPPEXIN ---
HPI - Extremity Injury (Upper) General Chief Complaint: Extremity Injury, Upper Stated Complaint: hand injury Time Seen by Provider: 06/09/23 03:16 Source: patient Limitations: no limitations History of Present Illness HPI narrative: Patient is a 62-year-old male presents to the emergency department complaining of left lower arm pain. Patient states approximately 30 hours prior to coming into the emergency department he had a truck bed fall onto his left lower arm. Patient denies having any significant pain initially however the next morning he started getting some pain in his pain getting progressively worse ever since. Patient describes the pain as a burning sensation all throughout his entire left lower arm from the proximal forearm distally but is most painful at the palmar aspect of his thumb and his wrist along the anterior aspect. Patient denies any history of injuries here in the past. Patient denies any blood loss. Patient denies fever, recent illness, vomiting, diarrhea, numbness, weakness, paresthesias. Patient admits to swelling diffusely throughout is left hand since the injury. Patient denies any redness. Patient denies taking any medications for the pain. Patient is right-handed. Patient denies any blood loss. Patient admits to decreased range of motion of the hand and fingers diffusely secondary to pain. Patient admits to old cuts on his and from 3 months ago that are unchanged. Patient notes that his tetanus is up-to-date. Patient denies pain anywhere else or any other injuries. Related Data Allergies Allergy/AdvReac Type Severity Reaction Status Date / Time latex Allergy Unknown unknown Verified 05/05/23 12:23 oxycodone AdvReac Unknown NAUSEA AND Verified 05/05/23 12:23 VOMITING Review of Systems Review of Systems: A 10 system review of systems was completed on the patient and is negative except for what is stated in the HPI. Nursing and ancillary documentation was reviewed. [facility] Past Medical History Medical History (Updated 06/09/23 @ 08:57 by Oren Baca DO) Anxiety Surgical History Surgical History H/O: knee surgery Family History Family History Mother Family history of cardiovascular disease Father Family history of malignant neoplasm Social History Social History Smoking packs per day: 2 Smoking cigarettes per day: 40.0 Years smoked: 35 Smoking pack-years: 70.00 Smoking status: Former smoker Tobacco type: cigarettes Smoking end date: 05/21/09 Alcohol intake: former Substance use: current Substance use type: marijuana Other substance usage details: CBD Current Housing: Decline to Answer Concerned About Future Housing: Decline to Answer Difficulty Paying Gas/Electric Bills: Decline to Answer Difficulty Paying for Meds: Decline to Answer Currently Unemployed: Decline to Answer Education: Decline to Answer Difficulty w/ Childcare or Family Care: Decline to Answer Living arrangements: alone Gender identity (if verbalized by the patient): Male Spiritual care concerns: No Comments At time of signature, I have reviewed and agree with nursing past medical, surgical, social and family history unless otherwise noted. Please see the nursing chart for further information. There is no relevant family history pertinent to the presenting complaint. Exam Narrative: CONST: Mild acute distress complaining of pain in his left lower arm diffusely. Well nourished. HENMT: Head is normocephalic and atraumatic. Moist mucous membranes. No posterior oropharynx erythema. EYES: No conjunctival icterus, injection, or pallor. PERRL. NECK: No meningeal signs. RESP: Able to speak in full sentences. Normal respiratory effort. CTAB. CARDIO: Regular rate. Regular rhythm. 2+ DP and radial
[2023-06-09] MEDS: SODIUM CHLORIDE 0.9% IV 1,000 ML 999 ML IV CONT ×2 (03:41→08:31)
[2023-06-09] MEDS: MORPHINE SULFATE (*CRX) 4 MG/ML INJ IV PUSH ×3 (03:41→08:31)
[2023-06-09 03:49] LABS: Basophils Percent Auto 0.2 % (0.2-1.2); Eosinophils Percent Auto 0.1 % (0-4.4); Hematocrit 38.7 % (42.0-52.0); Hemoglobin 13.1 g/dL (14.0-18.0); Immature Granulocyte Absolute 0.07 K/mm3 (0.00-0.031); Immature Granulocyte Percent A 0.4 % (0-0.5); Lymphocytes Absolute Auto 1.23 K/mm3 (0.9-3.2); Lymphocytes Percent Auto 7.2 % (18.3-44.2); Mean Corpuscular HGB Conc 33.9 g/dl (32-36); Mean Corpuscular Hemoglobin 30.5 pg (26-34); Mean Corpuscular Volume 90.2 fl (80-100); Mean Platelet Volume 9.1 fl (7.4-10.4); Monocytes Absolute Auto 1.3 K/mm3 (0.1-0.6); Monocytes Percent Auto 7.8 % (2.6-8.5); Neutrophils Absolute Auto 14.3 K/mm3 (1.3-6.7); Neutrophils Percent Auto 84.3 % (45.5-73.1); Platelet Count Result 322 k/mm3 (150-375); Red Blood Count 4.29 M/mm3 (4.6-6.20)
[2023-06-09 04:07] LABS: INR 0.9; Partial Thromboplastin Time 30.6 SECONDS (22.3-36.8); Prothrombin Time 12.7 Seconds (11.1-14.7)
[2023-06-09 04:40] LABS: Alanine Aminotransferase 24 U/L (6-50); Albumin Level 4.8 g/dL (3.5-5.1); Alkaline Phosphatase 70 U/L (38-126); Anion Gap 10 mmol/L (8-16); Aspartate Amino Transferase 31 U/L (17-59); Bilirubin,Total 0.9 mg/dL (0.2-1.3); Blood Urea Nitrogen 18 mg/dL (9-20); CRP 3.1 mg/dL (<1.0); Calcium 9.9 mg/dL (8.4-10.2); Carbon Dioxide 24 mmol/L (22-30); Chloride 102 mmol/L (98-107); Estimated CRCL calculation 67 ml/min; Estimated Glomerular Filt Rate > 60; Glucose 138 mg/dL (65-110); Potassium 3.7 mmol/L (3.4-5.0); Sodium 136 mmol/L (137-145)
[2023-06-09 05:30] LABS: Creatine Kinase 260 U/L (55-170)
[2023-06-09 08:45] VITALS: BP 174/96; PULSE 88; RESP 18; TEMP 36.8; O2SAT 98
== END 2023-06-09 09:00 | disposition short-term general hospital (02) ==
PROVIDERS: Emergency Provider Student in an Organized Health Care Education/Training Program; PCP Emergency Medicine
DX: T79.A12A Traumatic compartment syndrome of left upper extremity, initial encounter (principal); M79.632 Pain in left forearm; Z87.891 Personal history of nicotine dependence; M18.9 Osteoarthritis of first carpometacarpal joint, unspecified; W20.8XXA Other cause of strike by thrown, projected or falling object, initial encounter
CPT/HCPCS: 36415; 73130; 73201; 80053; 82550; 83605; 85025; 85610; 85730; 86140; 96361; 96374; 96376; 99284; J2270; J7030; Q9967

== ENCOUNTER 2024-04-22 10:09 | Outpatient (CLI) | payer MEDICARE, MEDICAID, SELFPAY ==
--- NOTE | ~2024-04-22 | MR_ITS ---
EXAMINATION: MR cervical spine wo con DATE: 04/22/2024 10:50 INDICATION: Cervicalgia TECHNIQUE: Magnetic resonance imaging (MRI) of the cervical spine was performed without intravenous c ontrast. Sequences included sagittal T2-weighted FSE, sagittal T2-weighted FS FSE, sagittal T1-weight ed FSE, axial MERGE and axial T2-weighted FSE. COMPARISON: Chest CT dated 01/08/2020 FINDINGS: Mild reversal of the normal cervical lordosis. Cervical vertebral body heights are normal. Unchanged minimal anterior wedging at T1. Severe disc height loss at C6-C7 with prominent fluid signal hyperint ense fibrovascular degenerative endplate changes at both sides of the disc space and posterior low T1 and fluid signal intensity Modic type III sclerotic endplate changes. Additional severe disc height loss with mild fibrofatty and fibrovascular degenerative endplate changes at C5-C6. Mild disc height loss at the remaining cervical levels. Mild fibrovascular degenerative endplate changes at the right posterior aspect of the C2-C3 and C3-C4 disc spaces. Cord signal intensity is normal. Mild marrow ramos ma and prominent surrounding soft tissue edema associated with severe facet osteoarthritis on the rig ht at C2-C3 and C3-C4 which will be further detailed below. Cervical soft tissues are otherwise unrem arkable. The following disc levels are specifically discussed: C2-C3: The disc does not extend beyond the endplate margin. There is mild bilateral uncovertebral farshad nt osteoarthritis. There is mild left and severe right facet joint osteoarthritis. There is moderate right neural foraminal stenosis. There is no central canal stenosis. C3-C4: Disc is mildly bulging. There is moderate bilateral uncovertebral joint osteoarthritis. There is moderate left and severe right facet joint osteoarthritis. There is mild to moderate left and mode rate right neural foraminal stenosis. There is mild central canal stenosis. C4-C5: Disc is mildly bulging. There is moderate bilateral uncovertebral joint osteoarthritis. There is mild left and moderate right facet joint osteoarthritis. There is mild to moderate left and modera te right neural foraminal stenosis. There is mild central canal stenosis. C5-C6: The disc does not extend beyond the endplate margin with small posterior endplate osteophytes. There is severe bilateral uncovertebral joint osteoarthritis. There is mild bilateral facet joint os teoarthritis. There is moderate right and moderate to severe left neural foraminal stenosis. There is mild central canal stenosis with mild indentation of the left ventral surface of the cord. C6-C7: Mild posterior disc osteophyte complex. There is severe bilateral uncovertebral joint osteoart hritis. There is mild bilateral facet joint osteoarthritis. There is moderate right and moderate to s evere left neural foraminal stenosis. There is mild to moderate central canal stenosis with indentati on of the ventral surface of the cord flattening of the left and right posterolateral margins of the cord. C7-T1: Disc is bulging. There is mild bilateral uncovertebral joint osteoarthritis. There is moderate bilateral facet joint osteoarthritis. There is mild left and mild to moderate right neural foraminal stenosis. There is mild central canal stenosis. IMPRESSION: 1. Severe cervical spondylosis. Reviewed, dictated and finalized at location A. D APPRAISER
== END 2024-04-22 10:10 | disposition home or self-care (01) ==
LOC: MICIMG 10:10
PROVIDERS: PCP Emergency Medicine; Visit Provider Nurse Practitioner Family
DX: M47.892 Other spondylosis, cervical region (principal)
CPT/HCPCS: 72141